=== PATIENT | female | born 1950 | race Caucasian/White ===

== ENCOUNTER → 2016-05-27 | Outpatient (CLI) | payer OTHER ==
--- NOTE | 2016-06-01 09:10 | MM ---
Reason for exam: screening (asymptomatic). Last mammogram was performed 1 year and 2 months ago. History: Patient is postmenopausal, history of other cancer, and had first child at age 37. Family history of breast cancer in 2 maternal aunts. Benign excisional biopsy of the left breast, 2012. Physical Findings: A clinical breast exam by your physician is recommended on an annual basis and results should be correlated with mammographic findings. MG 3D Screening Mammo W/Cad Bilateral CC and MLO view(s) were taken. Prior study comparison: April 08, 2015, mammogram, performed at [facility]. April 04, 2014, mammogram, performed at [facility]. The breast tissue is extremely dense which could obscure a lesion on mammography. Finding: There are indeterminate calcifications. Previous mammotome biopsy in the left breast. There is a chronic nodularity in the right breast. ASSESSMENT: Incomplete: need additional imaging evaluation, BI-RAD 0 RECOMMENDATION: Special view mammogram of the right breast. If lesion persists on supplemental views, image directed ultrasound is recommended. [facility] will attempt to contact patient to return for supplemental views and ultrasound if indicated.
== END | disposition home or self-care (01) ==
LOC: RADMAMWWP 10:55
PROVIDERS: ATTEND Family Medicine
DX: Z12.31 Encounter for screening mammogram for malignant neoplasm of breast (principal)
CPT/HCPCS: 77063; G0202

== ENCOUNTER → 2016-06-02 | Outpatient (CLI) | payer OTHER ==
[2016-06-02 09:13] LABS: Basophils % (A) 1 %; CH 31.7; CHCM 31.7; Eosinophils # (A) 0.2 k/uL (0-0.7); Eosinophils % (A) 3 %; HDW 1.94; HGB 13.5 gm/dL (11.4-16.0); Luc # (Auto) 0.17; Luc % (Auto) 4; Lymphocytes # (A) 1.8 k/uL (1.0-4.8); Lymphocytes % (A) 37 %; MCH 31.5 pg (25.0-35.0); MCHC 31.3 g/dL (31.0-37.0); MCV 100.6 fL (80.0-100.0); Mean Platelet Volume 6.9; Monocytes # (A) 0.4 k/uL (0-1.0); Monocytes % (A) 7 %; Neutrophils # (A) 2.3 k/uL (1.3-7.7); Neutrophils % (A) 48 %; RBC 4.27 m/uL (3.80-5.40); RDW 12.7 % (11.5-15.5); WBC 4.7 k/uL (3.8-10.6); WBC (Perox) 4.83
--- NOTE | 2016-06-02 09:15 | MM ---
Reason for exam: additional evaluation requested from abnormal screening. Last mammogram was performed less than 1 month ago. History: Patient is postmenopausal, history of other cancer, and had first child at age 37. Family history of breast cancer in 2 maternal aunts. Benign excisional biopsy of the left breast, 2012. Physical Findings: Nurse did not find any significant physical abnormalities on exam. MG Work Up Mamm w CAD RT ML view(s) were taken of the right breast. Prior study comparison: May 27, 2016, bilateral MG 3d screening mammo w/cad. April 08, 2015, mammogram, performed at [facility]. Finding: There are grouped and segmental calcifications in the lower inner quadrant of the right breast. New finding since May 27, 2016 and April 08, 2015. These results were verbally communicated with the patient and result sheet given to the patient on 06/02/16. ASSESSMENT: Suspicious, BI-RAD 4 RECOMMENDATION: Stereotactic core biopsy of the right breast. Called Dr. Solomon with mammographic findings and has scheduled an appointment for the patient for 06/08/16 at 3:[address] Simpson. PRELIMINARY REPORT CALLED AND FAXED TO DR. SIMPSON ON 06/02/16 AT 300/TP.
[2016-06-02 09:17] LABS: ALT 60 U/L (9-52); AST 45 U/L (14-36); Alkaline Phosphatase 94 U/L (38-126); Anion Gap 11 mmol/L; Blood Urea Nitrogen 15 mg/dL (7-17); Calcium 9.9 mg/dL (8.4-10.2); Carbon Dioxide 26 mmol/L (22-30); Chloride 105 mmol/L (98-107); Cholesterol 251 mg/dL (<200); Glucose 84 mg/dL (74-99); Non-African American GFR(MDRD) >60 (>60 ml/min/1.73 sqM); Potassium 4.2 mmol/L (3.5-5.1); Sodium 142 mmol/L (137-145); Total Bilirubin 1.1 mg/dL (0.2-1.3); Total Protein 7.8 g/dL (6.3-8.2); Triglycerides 81 mg/dL (<150)
[2016-06-02 09:31] LABS: HDL Cholesterol 137 mg/dL (40-60)
[2016-06-04 16:53] LABS: Hepatitis B Surface Ag Index 0.05
[2016-06-04 16:59] LABS: Hepatitis B Core IgM Index 0.03
[2016-06-04 17:10] LABS: Hepatitis C Virus IgG Index 0.01
[2016-06-04 17:13] LABS: Hepatitis C Virus IgG Ab Negative (Negative)
== END | disposition home or self-care (01) ==
LOC: RADMAMWWP 07:14
PROVIDERS: ATTEND Family Medicine
DX: R92.8 Other abnormal and inconclusive findings on diagnostic imaging of breast (principal); Z00.00 Encounter for general adult medical examination without abnormal findings
CPT/HCPCS: 80061; 80053; 84443; 85025; 36415; G0206; 80074

== ENCOUNTER → 2016-06-14 | Day surgery (SDC) | payer OTHER ==
[~2016-06-14] MED LIST: ALPRAZolam 0.25 MG TAB ONE; BACITRACIN OINT 1 EACH PACKET TOPICAL ONE; LIDOCAINE 1% INJ 10MG/ML (20 ML MDV) ONE; LIDOCAINE 1%-EPI 1:100,000 20 ML VIAL ONE; SODIUM BICARB 4% 5 ML VIAL (0.48 MEQ/ML) ONE
--- NOTE | 2016-06-14 16:01 | MM ---
EXAMINATION TYPE: MG stereo VAD BX RT DATE OF EXAM: 06/14/2016 3:47 PM COMPARISON: Previous study dated 06/02/2016 and 05/27/2016. CLINICAL HISTORY: Abnormal mammogram. TECHNIQUE: Stereotactic guided core biopsy of right breast. FINDINGS: The procedure of stereotactic guided core biopsy was explained to the patient. Benefits, alternatives, and risks were discussed. An informed consent was then obtained. The shortness pathway for biopsy was chosen. Shortness pathway was medial to lateral approach. I performed the localization, then surgeon, Dr. Bucio performed the remainder of the procedure. A vacuum assisted biopsy gun was used to obtain multiple core samples. The patient tolerated the procedure well without any immediate complication. The patient was kept in the radiology department for short stay after the procedure and then discharged home in stable condition. Targeted calcifications are identified in specimen mammogram. Post biopsy mammogram shows the clip to appear in satisfactory position relative to the targeted area of concern on the preprocedure images. IMPRESSION: SUCCESSFUL, UNCOMPLICATED STEREOTACTIC GUIDED CORE BIOPSY OF AREA OF CONCERN IN THE RIGHT BREAST, FULL PATHOLOGY RESULTS TO FOLLOW. 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 Recommendation Surgical consult of the right breast. GUANACO
== END ==
LOC: RADMAMWWP 13:11
PROVIDERS: ATTEND Surgery
DX: D05.11 Intraductal carcinoma in situ of right breast (principal); N64.89 Other specified disorders of breast; R92.8 Other abnormal and inconclusive findings on diagnostic imaging of breast; Z88.5 Allergy status to narcotic agent; Z88.2 Allergy status to sulfonamides
CPT/HCPCS: 88305; 19081; A4648; J2001

== ENCOUNTER → 2016-06-17 | Outpatient (CLI) | payer OTHER ==
--- NOTE | 2016-06-17 10:41 | US ---
EXAMINATION TYPE: US liver DATE OF EXAM: 06/17/2016 10:22 AM COMPARISON: NONE CLINICAL HISTORY: Elevated liver enzymes R74.8. EXAM MEASUREMENTS: Liver Length: 12.5 cm Gallbladder Wall: 0.2 cm CBD: 0.1 cm Right Kidney: 10.8 x 4.1 x 3.6 cm TECHNOLOGIST IMPRESSION: large body habitus, overlying bowel gas Pancreas: large body habitus, overlying bowel gas Liver: fatty liver. No discrete masses or cysts are evident. Gallbladder: small bright echo gb neck not gravity dependent, possible polyp, vs valves Evidence for sonographic Cummings's sign: no CBD: wnl Right Kidney: wnl IMPRESSION: 1. Limited visualization due to bowel gas. This is further limited by body habitus. 2. Mild fatty infiltration liver.. 3. Gallstones. Small polyps would be difficult to exclude.
== END | disposition home or self-care (01) ==
LOC: RADUSWWP 10:00
PROVIDERS: ATTEND Family Medicine
DX: K76.0 Fatty (change of) liver, not elsewhere classified (principal); K80.20 Calculus of gallbladder without cholecystitis without obstruction
CPT/HCPCS: 76705

== ENCOUNTER → 2017-01-25 | Outpatient (CLI) | payer OTHER ==
--- NOTE | 2017-01-25 13:55 | CT ---
EXAMINATION TYPE: CT iac wo con DATE OF EXAM: 01/25/2017 COMPARISON: NONE HISTORY: hearing loss/fullness both ears CT DLP: 150.0 mGycm. Automated Exposure Control for Dose Reduction was Utilized. TECHNIQUE: CT scan of internal auditory canal is performed without contrast, thin cut axial images ar e obtained, coronal reformatted images are also reviewed. FINDINGS: The external auditory canals are patent bilaterally. Mastoid air cells show no evidence of abnormal opacification bilaterally. The middle ear ossicles are symmetric and unremarkable. There is no evidence of suspicious surrounding soft tissue density to suggest cholesteatoma. The scutum is preserved bilaterally. The cochlea and the semicircular canals are symmetric and unremarkable. Ves tibular aqueduct and internal carotid canal appear unremarkable. There is asymmetric narrowing right temporomandibular joint with flattening of condylar head. Visual ized paranasal sinuses are grossly clear. There is elongation of both globes present. Visualized port ion brain parenchyma is felt within normal limits. IMPRESSION: No significant abnormality seen to account for patient's symptoms. Asymmetric right-sided temporomandibular joint degenerative change noted. Correlate clinically.
== END | disposition home or self-care (01) ==
LOC: RADCTMAIN 13:05
PROVIDERS: ATTEND Otolaryngology
DX: M26.69 Other specified disorders of temporomandibular joint (principal); H90.12 Conductive hearing loss, unilateral, left ear, with unrestricted hearing on the contralateral side
CPT/HCPCS: 70480

== ENCOUNTER → 2017-10-28 | Outpatient (CLI) | payer MEDICARE, OTHER ==
--- NOTE | 2017-10-28 15:37 | US ---
EXAMINATION TYPE: US carotid duplex BILAT DATE OF EXAM: 10/28/2017 COMPARISON: NONE CLINICAL HISTORY: R55 Syncope and collapse. EXAM MEASUREMENTS: RIGHT: Peak Systolic Velocity (PSV) cm/sec ----- Right CCA: 75.6 ----- Right ICA: 68.9 ----- Right ECA: 49.6 ICA/CCA ratio: 0.9 RIGHT: End Diastole cm/sec ----- Right CCA: 26.7 ----- Right ICA: 31.1 ----- Right ECA: 9.7 LEFT: Peak Systolic Velocity (PSV) cm/sec ----- Left CCA: 66.0 ----- Left ICA: 67.7 ----- Left ECA: 82.2 ICA/CCA ratio: 1.0 LEFT: End Diastole cm/sec ----- Left CCA: 23.2 ----- Left ICA: 23.2 ----- Left ECA: 19.4 VERTEBRALS (direction of flow): Right Vertebral: Antegrade Left Vertebral: Antegrade Rhythm: Normal Grayscale images show minimal eccentric hyperechoic plaque at left carotid bulb. There is no signific ant plaque at right carotid bulb. IMPRESSION: No hemodynamically significant stenosis seen in either internal carotid artery.
== END | disposition home or self-care (01) ==
LOC: RADUSWWP 14:59
PROVIDERS: ATTEND Family Medicine
DX: R55 Syncope and collapse (principal)
CPT/HCPCS: 93880

== ENCOUNTER → 2017-11-17 | Outpatient (CLI) | payer MEDICARE, OTHER ==
--- NOTE | 2017-11-17 08:16 | US ---
EXAMINATION TYPE: US liver DATE OF EXAM: 11/17/2017 COMPARISON: US CLINICAL HISTORY: R74.8 Abnormal Levels other serum enzymes; medication for HTN EXAM MEASUREMENTS: Liver Length: 14.1 cm Gallbladder Wall: 0.2 cm CBD: 0.4 cm Right Kidney: 10.6 x 5.1 x 5.0 cm Pancreas: hyperechoic Liver: There is increased echogenicity of the hepatic parenchyma with diminished visualization of th e portal triads most commonly relating to hepatic steatosis and limiting evaluation for underlying he patic masses. Gallbladder: mobile hyperechoic and shadowing focus, gallstone(s) noted mid then fundal area Evidence for sonographic Cummings's sign: no CBD: wnl Right Kidney: No hydronephrosis or masses seen. There is mild cortical renal thinning suggesting und erlying medical renal disease. IMPRESSION: 1. Findings most commonly related to hepatic steatosis, overall appearing mild in degree. 2. Cholelithiasis without sonographic evidence of acute cholecystitis. 3. Mild right cortical renal thinning suggesting underlying medical renal disease.
== END ==
LOC: RADUSWWP 07:10
PROVIDERS: ATTEND Family Medicine
DX: K76.0 Fatty (change of) liver, not elsewhere classified (principal); K80.20 Calculus of gallbladder without cholecystitis without obstruction
CPT/HCPCS: 76705

== ENCOUNTER → 2018-01-10 | Outpatient (CLI) | payer MEDICARE, OTHER | END | disposition home or self-care (01) | LOC: LABWHC1 10:21 | PROVIDERS: ATTEND Surgery Plastic and Reconstructive Surgery | DX: Z01.818 Encounter for other preprocedural examination (principal) | CPT/HCPCS: 36415; 93005 ==

== ENCOUNTER → 2018-03-10 | Outpatient (CLI) | payer MEDICARE, OTHER ==
--- NOTE | 2018-03-10 11:34 | MM ---
Reason for exam: additional evaluation requested from prior study. Last mammogram was performed 1 year ago. History: Patient is postmenopausal, has history of breast cancer at age 65, history of other cancer, and had first child at age 37. Family history of breast cancer in 2 maternal aunts. Malignant MG stereo VAD BX RT of the right breast, June 14, 2016. Benign excisional biopsy of the left breast, 2012. Took estrogen beginning at age 41. Took progesterone beginning at age 41. Physical Findings: Nurse did not find any significant physical abnormalities on exam. MG 3D Diag Mammo W/Cad LEISA Bilateral CC and MLO view(s) were taken. Prior study comparison: March 02, 2017, bilateral MG 3d diag mammo w/cad LEISA. June 02, 2016, right breast MG work up mamm w CAD RT. The breast tissue is heterogeneously dense. This may lower the sensitivity of mammography. Finding: There is an intermediate concern, suspicious equal density (isodense), lobulated mass located 5 cm from the nipple in the lower quadrant, middle position of the left breast, persistent on compression. New finding since March 02, 2017 and June 02, 2016. These results were verbally communicated with the patient and result sheet given to the patient on 03/10/18. ASSESSMENT: Incomplete: need additional imaging evaluation, BI-RAD 0 RECOMMENDATION: Ultrasound of the left breast.
--- NOTE | 2018-03-10 11:36 | USB ---
Reason for exam: additional evaluation requested from abnormal screening. History: Patient is postmenopausal, has history of breast cancer at age 65, history of other cancer, and had first child at age 37. Family history of breast cancer in 2 maternal aunts. Malignant MG stereo VAD BX RT of the right breast, June 14, 2016. Benign excisional biopsy of the left breast, 2012. Took estrogen beginning at age 41. Took progesterone beginning at age 41. US Breast Limited LT Left limited breast ultrasound including focal area of concern, retroareolar and axilla demonstrates no cystic or solid lesion seen. Very dense, no definite lesion. These results were verbally communicated with the patient and result sheet given to the patient on 03/10/18. ASSESSMENT: Benign, BI-RAD 2 RECOMMENDATION: Follow-up diagnostic mammogram of the left breast in 6 months.
== END | disposition home or self-care (01) ==
LOC: RADMAMWWP 08:41
PROVIDERS: ATTEND Radiology Radiation Oncology
DX: R92.8 Other abnormal and inconclusive findings on diagnostic imaging of breast (principal); Z85.3 Personal history of malignant neoplasm of breast
CPT/HCPCS: 77066; 76642; G0279; 77062

== ENCOUNTER → 2018-03-30 | Outpatient (CLI) | payer MEDICARE, OTHER ==
--- NOTE | 2018-04-06 09:46 | BMR ---
EXAMINATION TYPE: MR breast BILAT wo/w con DATE OF EXAM: 03/30/2018 COMPARISON: MRI Breast of 07/09/2016 from [facility] HISTORY: Intraductal carcinoma in situ, right breast. Stereotactic guided biopsy of 06/14/2016 demonst rated ductal carcinoma in situ. Breast cancer was treated with lumpectomy in 2017. TECHNIQUE: A series of fat and water weighted images in the long and short axis views of both breasts are obtained in conjunction with dynamic contrast MRI with subtraction technique. The patient was i njected with 7.5 mL intravenous Gadavist gadolinium contrast. Three-dimensional and additional post processing imaging is created on independent workstation and reviewed during official interpretation of this study. FINDINGS: The breasts are composed of heterogenous fibroglandular tissue. There is moderate symmetric backgroun d parenchymal enhancement. Susceptibility from a biopsy marker is seen of the central left breast anterior depth. Ductal ectasia is noted on the left. Post therapy changes are seen from prior lumpectomy within the right breast medially at posterior dep th with medial deviation of the nipple. There is a thin rim of enhancement surrounding the postlumpec candy site which demonstrates T2 hyperintensity and T1 hypointensity representing a seroma. At middle depth in the upper inner quadrant on the left there is a 5 mm nonenhancing circumscribed ro unded mass with T1 hyperintensity suggestive of a cyst with proteinaceous and/or hemorrhagic debris. No suspicious mass or nonmass enhancement is seen within either breast. No suspicious axillary, inter nal mammary, or intramammary adenopathy is identified in either breast. Right middle lobe opacity is seen on postcontrast T1 fat sat series 701 image 355 for which further e valuation with CT thorax is recommended. The heart appears mildly enlarged. IMPRESSION: 1. BI-RADS 2-Benign findings. Annual screening mammography may be supplemented with annual MRI in thi s patient with a personal history of breast cancer. 2. Incidentally noted right middle lobe opacity that could represent atelectasis, pneumonia, or pulmo nary nodule. CT thorax is recommended for further evaluation.
== END | disposition home or self-care (01) ==
LOC: RADMRIMAIN 08:44
PROVIDERS: ATTEND Radiology Radiation Oncology
DX: D05.11 Intraductal carcinoma in situ of right breast (principal); Z92.3 Personal history of irradiation
CPT/HCPCS: 82565; 84520; 0159T; C8908; A9585; 77059

== ENCOUNTER → 2018-04-28 | Outpatient (CLI) | payer MEDICARE, OTHER ==
--- NOTE | 2018-04-28 10:35 | CT ---
EXAMINATION TYPE: CT chest wo/w con DATE OF EXAM: 04/28/2018 COMPARISON: Oncology CT chest September 03, 2016, bilateral breast MRI March 30, 2018 HISTORY: Right breast cancer CT DLP: 1172 mGycm. Automated Exposure Control for Dose Reduction was Utilized. TECHNIQUE: CT scan of the thorax is performed following without and with IV Contrast, patient inject ed with 100 ml mL of Isovue 300. FINDINGS: LUNGS: Some new linear scarring or atelectasis anterior right midlung axial image 29 is noted. There is some additional peripheral linear scarring or atelectasis inferior anterior to this noted. There i s minimal linear scarring or atelectasis centrally left lung base just above diaphragm. No suspicious parenchymal nodules or masses are identified. No pleural effusion or pneumothorax is present bilater ally. MEDIASTINUM: There are no greater than 1 cm hilar or mediastinal lymph nodes. No pericardial effusi on is seen. Mild cardiomegaly is present. OTHER: There is marked improvement in medial right breast area now measuring 1.6 x 1.0 cm axial image 27 favoring postsurgical seroma. Biopsy clip or calcification centrally left breast axial image 32 i s redemonstrated. Visualized liver is markedly hypodense consistent with fatty infiltration. There is mild generalized fat replaced atrophy of the visualized pancreas. There are diverticula in visualize d portion of colon at level of splenic flexure. IMPRESSION: 1. No suspicious lung nodules or masses. Some new linear scarring and/or less likely atelectasis righ t lung favors posttreatment change.
== END | disposition home or self-care (01) ==
LOC: RADCTMAIN 07:48
PROVIDERS: ATTEND Radiology Radiation Oncology
DX: J98.4 Other disorders of lung (principal); D05.11 Intraductal carcinoma in situ of right breast; Z92.3 Personal history of irradiation
CPT/HCPCS: 82565; 84520; 71270; 36415; Q9967

== ENCOUNTER 2018-06-17 07:47 | Inpatient (IN) | payer MEDICARE, OTHER ==
--- NOTE | 2018-06-17 08:00 | ED ---
Fall HPI - General Chief Complaint: Fall Stated Complaint: knee injury Time Seen by Provider: 06/17/18 07:50 Source: patient Mode of arrival: EMS - History of Present Illness Initial Comments: This is a 67-year-old female who states she slipped on the ice and fell last night doing the splits she is had right knee pain since that time she's been icing it all night but states she has persistent pain especially she tries weight-bear. She denies any head neck or back pain. He denies any other injuries. She states her restless there is minimal pain is unable to quantify the pain at this time. MD Complaint: fall - Related Data Home Medications Medication Instructions Recorded Confirmed Losartan [Cozaar] 50 mg PO DAILY 01/23/18 06/17/18 Multivit-Min/FA/Lycopen/Lutein 1 tab PO DAILY 06/17/18 06/17/18 [Centrum Silver Tablet] Allergies Allergy/AdvReac Type Severity Reaction Status Date / Time Sulfa (Sulfonamide Allergy Rash/Hives Verified 06/17/18 08:30 Antibiotics) Review of Systems ROS Statement: Those systems with pertinent positive or pertinent negative responses have been documented in the HPI. ROS Other: All systems not noted in ROS Statement are negative. Past Medical History Past Medical History: Cancer, Hypertension Additional Past Medical History / Comment(s): breast cancer with radiation History of Any Multi-Drug Resistant Organisms: None Reported Past Surgical History: Breast Surgery, Hysterectomy Additional Past Surgical History / Comment(s): right sided lumpectomy in June 2016 Past Psychological History: No Psychological Hx Reported Smoking Status: Never smoker Past Alcohol Use History: None Reported Past Drug Use History: None Reported General Exam - General Exam Comments Initial Comments: This is a well-developed well-nourished awake alert oriented 3 female with a Thanh Coma Scale of 15 Limitations: no limitations General appearance: alert, in no apparent distress Head exam: Present: atraumatic, normocephalic, normal inspection Eye exam: Present: normal appearance, PERRL, EOMI. Absent: scleral icterus, conjunctival injection, periorbital swelling ENT exam: Present: normal exam, mucous membranes moist Neck exam: Present: full ROM Respiratory exam: Absent: chest wall tenderness Cardiovascular Exam: Present: regular rate, normal rhythm, normal heart sounds. Absent: systolic murmur, diastolic murmur, rubs, gallop, clicks Rectal exam: Present: deferred Extremities exam: Present: tenderness, normal capillary refill, other. Absent: full ROM (Tenderness to palpation over the left hip no step-off or crepitation no shortening or rotation. No tenderness of the pelvis to pelvic rock. Right knee demonstrates edema with tenderness palpation no definite deformity however. No tenderness above or below this area no sensorimotor or vascular deficits limited range of motion however secondary to pain) Back exam: Present: normal inspection Neurological exam: Present: alert, oriented X3, CN II-XII intact Psychiatric exam: Present: normal affect, normal mood Skin exam: Present: warm, dry, intact, normal color. Absent: rash Course Vital Signs 06/17/18 07:48 Temperature 97.8 F Pulse Rate 93 Respiratory 16 Rate Blood Pressure 151/93 O2 Sat by Pulse 96 Oximetry Medical Decision Making - Medical Decision Making I did discuss the case in the branch who is covering for Dr. Otero. Patient will be admitted surgery is planned for tomorrow. I did discuss the findings with the patient and her . The patient initially did not request or want any pain medication she now is willing to except some. - Radiology Data Radiology results: report reviewed (I did review the imaging and report as well as a CT. There is a tibial plateau fracture extending into the proximal tibia. Please see complete report for details), image reviewed Disposition Clinical Impression: Fall, Right medial tibial plateau fracture Disposition: ADMITTED IP TO THIS [facility] Condition: Stable Referrals: Suleiman Solomon MD [Primary Care Provider] - 1-2 days
--- NOTE | 2018-06-17 08:47 | XR ---
EXAMINATION TYPE: XR pelvis AP view, XR knee 4V RT XR tibia fibula 2 views RT, DATE OF EXAM: 06/17/2018 COMPARISON: NONE HISTORY: 67-year-old female fall, left-sided pelvic pain, right knee pain and swelling. FINDINGS: Pelvis: SI joints appear symmetric and intact as does the pubic symphysis. There is osteopenia. Overall hip j oint spaces are relatively maintained, possibly with minimal superolateral joint space narrowing on t he left. No displaced fracture seen. Right knee and tibia/fibula: There is a vertical fracture of the proximal tibial epiphysis, metaphysis, and extending into the pro ximal most shaft. The fracture involves the medial tibial plateau extending into the central articula r surface of the medial compartment with an additional fracture extending into the intercondylar yulia ence. Underlying hemarthrosis. Extensor mechanism intact. IMPRESSION: 1. Pelvis: Osteopenia without displaced fracture seen at the hips. 2. Right knee and tibia/fibula: Nondisplaced vertical tibial plateau fracture involving the articular surface of the medial tibial plateau and intercondylar eminence. The fracture line extends down into the proximal most shaft.
--- NOTE | 2018-06-17 09:53 | CT ---
EXAMINATION TYPE: CT knee RT wo con DATE OF EXAM: 06/17/2018 COMPARISON: HISTORY: Fall CT DLP: 145.9 mGycm Automated exposure control for dose reduction was used. There is unenhanced CT of the right knee. Bon e and soft tissue window settings submitted. FINDINGS: Improving but persistent perihilar infiltrates. Follow-up until resolution advised.No fracture depres basil appreciated. No additional fracture seen. Mild surrounding soft tissue edema. No joint effusion. IMPRESSION: Improving but persistent perihilar infiltrates. Follow-up until resolution advised.
[2018-06-17] MEDS ORDERED: HYDROcodone/APAP 5-325MG 1 EACH TAB PO STA (10:04)
[2018-06-17] MEDS ORDERED: NALOXONE 0.4 MG/ML 1 ML VIAL IV PRN (10:20)
[2018-06-17] MEDS ORDERED: HYDROmorphone 0.5 MG/0.5 ML SYRINGE IVP PRN (10:27)
[2018-06-17] MEDS ORDERED: ONDANSETRON 4 MG/2 ML VIAL IVP PRN (10:27)
--- NOTE | 2018-06-17 10:37 | XR ---
EXAMINATION TYPE: XR chest 2V DATE OF EXAM: 06/17/2018 COMPARISON: 03/06/17 HISTORY: Shortness of breath TECHNIQUE: Frontal and lateral views of the chest are obtained. FINDINGS: Scattered senescent parenchymal changes noted. Hyperinflation compatible with COPD. No evidence for infiltrate. No evidence for atelectasis. Heart size is stable. Mediastinal structures are stable and grossly unremarkable. No evidence for hilar prominence. Degenerative changes dorsal spine. IMPRESSION: 1. No evidence for acute pulmonary disease.
[2018-06-17 10:40] LABS: Basophils % (A) 1 %; Eosinophils # (A) 0.1 k/uL (0-0.7); Eosinophils % (A) 1 %; HCT 38.4 % (34.0-46.0); HGB 12.7 gm/dL (11.4-16.0); Lymphocytes # (A) 1.1 k/uL (1.0-4.8); Lymphocytes % (A) 15 %; MCH 32.9 pg (25.0-35.0); MCHC 33.1 g/dL (31.0-37.0); MCV 99.4 fL (80.0-100.0); Mean Platelet Volume 6.9; Monocytes # (A) 0.4 k/uL (0-1.0); Monocytes % (A) 5 %; Neutrophils # (A) 5.5 k/uL (1.3-7.7); Neutrophils % (A) 77 %; Platelet Count 205 k/uL (150-450); RBC 3.86 m/uL (3.80-5.40); RDW 13.2 % (11.5-15.5); WBC 7.2 k/uL (3.8-10.6)
[2018-06-17 10:51] LABS: Albumin 4.3 g/dL (3.5-5.0); Magnesium 1.5 mg/dL (1.6-2.3); Potassium 4.6 mmol/L (3.5-5.1); Total Bilirubin 1.3 mg/dL (0.2-1.3); Total Protein 7.3 g/dL (6.3-8.2)
[2018-06-17 11:20] LABS: Creatine Kinase MB 0.4 ng/mL (0.0-2.4)
[2018-06-17] MEDS: SODIUM CHLORIDE 0.9% 1,000 ML IV SCH (13:39)
[2018-06-17] MEDS ORDERED: HYDROcodone/APAP 7.5-325MG 1 EACH TAB PO PRN (13:49)
[2018-06-17] MEDS ORDERED: HYDROmorphone 1 MG/ML 1 ML SYRINGE IM PRN (13:49)
--- NOTE | 2018-06-17 13:49 | P.HPOR ---
History of Present Illness H&P Date: 06/17/18 Chief Complaint: Right knee medial tibial plateau fracture Patient is a 67-year-old female who presented to [facility] early this morning with regards to her right knee injury. Patient states last night she slipped and fell on the ice when she injured her right knee. Patient initially went home, she needed assistance getting in her home. She woke up this morning and had increasing pain and reported to the hospital. Prior to the hospital, imaging test were done. Images demonstrated a right knee medial tibial plateau fracture. I was contacted by the emergency room physician, the case was discussed. I was able to discuss the case to my attending Dr. Otero, including imaging studies. Patient was admitted under orthopedic care. Consults were placed for internal medicine for medical management. Patient evaluated today at bedside, her is present. She is resting comfortably, there is a pillow under the knee at this time. The knee immobilizer prescription has been placed. She's remain nonweightbearing at this time. She notes no significant pain in the right knee, increasing pain slightly when movement. She denies any previous orthopedic surgeries involving the right knee, right hip, right foot or ankle. She has no other orthopedic complaints at this time. Review of Systems Constitutional: Reports as per HPI Past Medical History Past Medical History: Cancer, Hypertension Additional Past Medical History / Comment(s): breast cancer with radiation History of Any Multi-Drug Resistant Organisms: None Reported Past Surgical History: Breast Surgery, Hysterectomy Additional Past Surgical History / Comment(s): right sided lumpectomy in June 2016, partial right mastectomyh Past Anesthesia/Blood Transfusion Reactions: No Reported Reaction Past Psychological History: No Psychological Hx Reported Smoking Status: Never smoker Past Alcohol Use History: Daily Additional Past Alcohol Use History / Comment(s): 2 glasses of wine with dinner/ daily Past Drug Use History: None Reported - Past Family History Father Family Medical History: Coronary Artery Disease (CAD) Mother Family Medical History: Cancer Medications and Allergies Home Medications Medication Instructions Recorded Confirmed Type Losartan [Cozaar] 50 mg PO DAILY 01/23/18 06/17/18 History Multivit-Min/FA/Lycopen/Lutein 1 tab PO DAILY 06/17/18 06/17/18 History [Centrum Silver Tablet] Allergies Allergy/AdvReac Type Severity Reaction Status Date / Time Sulfa (Sulfonamide Allergy Rash/Hives Verified 06/17/18 08:30 Antibiotics) Physical Examination Right lower extremity: No obvious open lesions or sores, no areas of erythema. There is obvious effusion present around the right knee Range of motion and strength testing was not assessed Tenderness with palpation over the medial tibia and anterior tibia Logroll maneuver the hip reproduces no pain Postoperative in tenderness with palpation around the foot or ankle, range of motion is intact in the foot and ankle Calf is soft, no tenderness with palpation Neurovascular exam of the right lower extremity intact Results - Labs Labs: Abnormal Lab Results - Last 24 Hours (Table) 06/17/18 Range/Units 10:10 Glucose 109 H (74-99) mg/dL Magnesium 1.5 L (1.6-2.3) mg/dL AST 73 H (14-36) U/L ALT 95 H (9-52) U/L H & H 06/17/18 Range/Units 10:10 Hgb 12.7 (11.4-16.0) gm/dL Hct 38.4 (34.0-46.0) % Result Diagrams: 06/17/18 10:10 06/17/18 10:10 - Diagnostic results Knee x-ray: report reviewed, image reviewed Knee CT: report reviewed, image reviewed Assessment and Plan Plan: Imaging: Multiple imaging studies of the right lower extremity were obtained, including x -rays and computed tomography scan. Images demonstrate a slightly displaced medial tibial plateau fracture Assessment: 1. Right knee medial tibial plateau fracture 2. Status post fall from standing Plan: After discussion of the case in my attending physician Dr. Otero, we would like to proceed with surgery on 06/18/2018. We like to proceed with an open reduction internal fixation procedure of the right medial tibial plateau fracture Risk and benefits of the procedure were discussed with the patient and her at bedside today, this including but not excluding infection, blood loss , lamina blood clots, neurovascular injury, pain and stiffness, need for subsequent surgery. Patient is a good understanding and would like to proceed Obtain consent Nonweightbearing right lower extremity Nothing by mouth after midnight Knee immobilizer Insertion of urinary catheter Pain control Medical recommendations Further recommendations to follow after surgery Time with Patient: Less than 30
[2018-06-17] MEDS: HEPARIN SODIUM,PORCINE 5,000 UNIT/ML 1 ML VIAL SQ SCH ×2 (13:51→19:18)
[2018-06-17] MEDS ORDERED: Magnesium Replacement Protocol 1 EACH MISC MISCELLANE PRN (14:06)
[2018-06-17] MEDS ORDERED: TEMAZEPAM 15 MG CAP PO PRN (15:49)
[2018-06-17] MEDS ORDERED: ALPRAZolam 0.25 MG TAB PO PRN (15:49)
[2018-06-17] MEDS ORDERED: LORazepam 1 MG TAB PO PRN (15:49)
[2018-06-17] MEDS: MAGNESIUM SULFATE-D5W PMX 1 GM in DEXTROSE/WATER 1 100ML.BAG IVPB SCH ×2 (15:54→17:34)
[2018-06-17 16:02] LABS: Appearance,Urine Clear (Clear); Bacteria,Urine Many /hpf; Bilirubin,Urine Negative (Negative); Blood,Urine Trace (Negative); Color,Urine Light Yellow; Glucose,Urine (UA) Negative (Negative); Ketones,Urine Negative (Negative); Leukocyte Esterase,Urine Small (Negative); Mucus,Urine Rare /hpf; Nitrite,Urine Positive (Negative); PH, Urine 5.5 (5.0-8.0); Protein,Urine Negative (Negative); RBC,Urine 1 /hpf (0-5); Squamous Epithelial Cell,Urine <1 /hpf (0-4); Urobilinogen,Urine <2.0 mg/dL (<2.0); WBC,Urine 7 /hpf (0-5)
--- NOTE | 2018-06-17 17:40 | CONS ---
CONSULTATION DATE OF SERVICE: 06/17/2018 REASON FOR CONSULTATION: Advice regarding hypertension and multiple other medical issues requested by Orthopedic surgery. HISTORY: This 67-year-old woman with a past medical history of hypertension, history of breast cancer, radiation, hysterectomy, apparently had a fall and subsequently had a tibial plateau fracture. The patient admitted to Dr. Otero and the patient is slated for surgery at this time. There is no history of any fever, rigors or chills. No history of headache, loss of consciousness, seizures at this time. The patient apparently had a detailed workup recently. The patient had a right knee and as well as right medial tibial plateau fracture. There is no history of fever, rigors or chills. No history of headache, loss of consciousness, seizures. PAST MEDICAL HISTORY: History of hypertension, history of breast cancer, radiation, history of hysterectomy. MEDICATIONS: Prior to admission include home medications: 1. Multivitamins one p.o. daily. 2. Cozaar 50 mg daily. ALLERGIES: SULFA. FAMILY HISTORY: History of coronary artery disease in the family. SOCIAL HISTORY: history of occasional alcohol. No history of smoking. REVIEW OF SYSTEMS: ENT: No diminished vision. No diminished hearing. CARDIOVASCULAR: No angina or palpitations. RESPIRATORY: No cough. GI no nausea or vomiting. no dysuria. NERVOUS SYSTEM: No numbness or weakness. ALLERGY/IMMUNOLOGY: No asthma or hayfever. MUSCULOSKELETAL: As mentioned earlier. HEMATOLOGY/ONCOLOGY: No history of anemia. ENDOCRINE: No history of diabetes or hypothyroidism. CONSTITUTIONAL: As mentioned earlier. Dermatology: Negative. Rheumatology: Negative. Psychiatry: As mentioned earlier. PHYSICAL EXAMINATION: GENERAL: The patient is alert and oriented times three. VITAL SIGNS: Pulse 91, blood pressure 150/90, respirations 16, temperature 97.9, pulse ox 100 percent on room air. HEENT: Conjunctivae normal. NECK: No jugular venous distention. CARDIOVASCULAR: S1, S2 muffled. RESPIRATORY: Breath sounds diminished in the bases. No rhonchi. No crackles. ABDOMEN: Soft, nontender. No mass palpable. LEGS: Status post left knee fracture. NERVOUS SYSTEM: No focal deficits. LABS: WBC 7.1, hemoglobin 12.7, magnesium 1.5, AST is 73, and ALT is 95. ASSESSMENT: 1. Status post right knee medial tibial plateau fracture status post fall. 2. Hypertension. 3. Hypomagnesemia. 4. Increased AST ALT. 5. History of breast cancer with radiation. 6. History of hysterectomy. 7. FULL CODE. RECOMMENDATIONS AND DISCUSSION: In this 67-year-old woman who presented with multiple complex medical issues, at this time I recommend to continue current management. Symptomatic treatment. I recommend repeat labs. Magnesium supplementation. Otherwise, I would also recommend DVT prophylaxis and resume the home medications. We will follow the patient closely with you. The patient is cleared for surgery. Recommend repeat labs. See orders for details. Thank you for letting us participate in the care of this patient. MMODL / IJN: [id number] /
[2018-06-18] MEDS: HEPARIN SODIUM,PORCINE 5,000 UNIT/ML 1 ML VIAL SQ SCH ×3 (06:57→23:36)
[2018-06-18] MEDS: PANTOPRAZOLE 40 MG TABLET PO SCH (07:07)
[2018-06-18 08:00] LABS: Basophils % (A) 1 %; Eosinophils # (A) 0.1 k/uL (0-0.7); Eosinophils % (A) 2 %; HCT 33.8 % (34.0-46.0); Lymphocytes # (A) 1.1 k/uL (1.0-4.8); Lymphocytes % (A) 21 %; MCH 32.9 pg (25.0-35.0); MCHC 32.5 g/dL (31.0-37.0); MCV 101.3 fL (80.0-100.0); Macrocytosis Slight; Mean Platelet Volume 7.2; Monocytes # (A) 0.3 k/uL (0-1.0); Monocytes % (A) 6 %; Neutrophils # (A) 3.6 k/uL (1.3-7.7); Neutrophils % (A) 69 %; Platelet Count 162 k/uL (150-450); RBC 3.34 m/uL (3.80-5.40); RDW 12.9 % (11.5-15.5); WBC 5.2 k/uL (3.8-10.6)
[2018-06-18] MEDS ORDERED: SUCCINYLCHOLINE CHLORIDE 100 MG/5 ML SYR IV ONE (08:00)
[2018-06-18] MEDS ORDERED: GLYCOPYRROLATE 0.2 MG/ML 2 ML VIAL ONE (08:00)
[2018-06-18] MEDS ORDERED: ROCURONIUM BROMIDE 10 MG/ML 10 ML VIAL IV ONE (08:00)
[2018-06-18] MEDS ORDERED: NEOSTIGMINE 1 MG/ML 10 ML VIAL ONE (08:00)
[2018-06-18] MEDS ORDERED: MIDAZOLAM 2 MG/2 ML VIAL ONE (08:00)
[2018-06-18] MEDS ORDERED: DEXAMETHASONE SOD PHOS (MDV) 100 MG/10 ML VIAL ONE (08:00)
[2018-06-18] MEDS ORDERED: LIDOCAINE 1% INJ 10MG/ML (20 ML MDV) ONE (08:00)
[2018-06-18] MEDS ORDERED: ONDANSETRON 4 MG/2 ML VIAL ONE (08:00)
[2018-06-18] MEDS ORDERED: PROPOFOL 10 MG/ML 20 ML VIAL IV ONE (08:00)
[2018-06-18] MEDS ORDERED: fentaNYL (PF) 50 MCG/ML 2 ML AMP ONE (08:00)
[2018-06-18] MEDS: LOSARTAN 50 MG TAB PO SCH (08:07)
[2018-06-18 08:18] LABS: Albumin 3.5 g/dL (3.5-5.0); Calcium 9.2 mg/dL (8.4-10.2); Magnesium 1.8 mg/dL (1.6-2.3); Potassium 4.2 mmol/L (3.5-5.1); Total Bilirubin 1.5 mg/dL (0.2-1.3); Total Protein 6.2 g/dL (6.3-8.2)
[2018-06-18] MEDS ORDERED: MIDAZOLAM 2 MG/2 ML VIAL IVP ONE ×2 (09:22)
[2018-06-18] MEDS ORDERED: fentaNYL (PF) 50 MCG/ML 2 ML AMP IVP ONE (09:30)
[2018-06-18] MEDS ORDERED: SODIUM CHLORIDE 0.9% 1,000 ML IV ONE (10:10)
[2018-06-18] MEDS ORDERED: IV FLUID CONTINUATION 1,000 ML IV ONE (10:10)
[2018-06-18] MEDS ORDERED: SODIUM CHLORIDE 0.9% 50 ML with ceFAZolin 2,000 MG IV ONE ×2 (10:25)
[2018-06-18] MEDS ORDERED: LACTATED RINGERS 1,000 ML IV ONE (10:39)
[2018-06-18] MEDS ORDERED: ceFAZolin 1,000 MG in SODIUM CHLORIDE 0.9% 1,000 ML IRRIGATION ONE (10:39)
[2018-06-18] MEDS ORDERED: HYDROcodone/APAP 7.5-325MG 1 EACH TAB PO PRN (11:03)
--- NOTE | 2018-06-18 11:03 | P.OP ---
Date of Procedure: 06/18/18 Preoperative Diagnosis: Right knee tibial plateau fracture Postoperative Diagnosis: Right knee medial and lateral tibial plateau fractures Procedure(s) Performed: Open reduction and internal fixation right knee medial and lateral tibial plateau fractures Implants: 2Synthes 6.5 cannulated screws Anesthesia: GETA, regional (Adductor canal block) Surgeon: Mikey Otero Animal Bounty Hunter #1: Cesar Hodge Estimated Blood Loss (ml): 2 Pathology: none sent Condition: stable Disposition: PACU Indications for Procedure: 67-year-old patient seen with right knee tibial plateau fracture. I recommended open reduction and internal fixation. I discussed procedure, risks , complications and recovery. Patient was agreeable. Consent was obtained. Operative Findings: see description of procedure Description of Procedure: The patient was taken to the operative suite after having an adductor canal block performed by the department of anesthesia. The patient received preoperative IV antibiotics. The patient underwent a general anesthetic by the department of anesthesia. A well-padded tourniquet was placed proximal right thigh. The right lower extremity was then prepped and draped in the normal sterile orthopedic fashion. The extremity was elevated and tourniquet insufflated to 350. The C-arm was brought to the operative field. The fracture was reduced with a large reduction clamp. I made an incision along the medial aspect of the medial tibial plateau. A guidewire was introduced in sense through the proximal tibia just beneath the plateau in line with the joint line. A second incision was made posteriorly another guidewire was introduced parallel to that. The fracture looked reasonably aligned at this point. I depth gauged both wires and introduced 1-75 mm 6.5 cannulated screw posteriorly with a washer and then 1-70 mm 6.5 cannulated screw with a washer anteriorly. Both had good bite and purchase. The fracture appeared adequately aligned. Guidewires removed. The construct was now removed and reviewed under AP and lateral intraoperative imaging. There was good positioning of the fracture and internal fixation. Spot films obtained document that. Both incisions were repaired utilizing skin nickolas. We applied sterile dressings followed by loose web roll and Jovon bandage. Tourniquet was released noting immediate capillary refill distally. A knee immobilizer was placed into the right lower extremity. The patient was now awakened, transferred to a bed and taken recovery stable condition. Dinh BRAVO assisted the procedure.
--- NOTE | 2018-06-18 11:27 | FL ---
EXAMINATION TYPE: FL guidance operating room, XR knee limited RT DATE OF EXAM: 06/18/2018 COMPARISON: NONE HISTORY: 67-year-old female tibial plateau fracture fixation FINDINGS: Images during 2 cortical screw fixation from the medial side of the tibial plateau. FLUOROSCOPY Fluoroscopy time of 13 seconds was used during tibial plateau fracture fixation. 2 image/s document/ s the procedure. IMPRESSION: Intraoperative fluoroscopy as above.
[2018-06-18] MEDS: SODIUM CHLORIDE 0.9% 1,000 ML IV SCH (12:30)
[2018-06-18] MEDS: MULTIVITAMINS, THERA 1 EACH TAB PO SCH (15:30)
--- NOTE | 2018-06-18 16:38 | PN ---
PROGRESS NOTE DATE OF SERVICE: 06/18/2018. HISTORY: This 67-year-old woman who was admitted after right tibial plateau fracture is improving significantly. No chest pain. No palpitations. No fever. EXAM: Alert and oriented. Pulse 63, blood pressure 140/48, respiration 12, temperature 98.7, pulse ox 98% on room air. HEENT: Conjunctivae normal. NECK: No JVD. CARDIOVASCULAR: S1 and S2 muffled. LUNGS: Breath sounds diminished at the bases. Few scattered rhonchi. ABDOMEN: Soft, nontender. NERVOUS SYSTEM: No focal deficits. LABS: hemoglobin 11, sodium 136. ASSESSMENT: 1. Status post right knee medial plateau tibial fracture status post fall. 2. Hypertension. 3. Hypomagnesemia. 4. Increased AST and ALT. 5. History of breast cancer with radiation. 6. History of hysterectomy. 7. Mild hyponatremia, rule out urinary tract infection. 8. FULL CODE. RECOMMENDATIONS: Continue current management, monitoring and symptomatic treatment at this time. I recommend to continue with current medications. Continue with symptomatic treatment. DVT prophylaxis. I would also recommend urine culture. Further recommendations to follow. MMODL / IJN: [id number] / GUANACO
[2018-06-19] MEDS: HEPARIN SODIUM,PORCINE 5,000 UNIT/ML 1 ML VIAL SQ SCH ×3 (06:54→23:30)
[2018-06-19] MEDS: MULTIVITAMINS, THERA 1 EACH TAB PO SCH (06:55)
[2018-06-19] MEDS: LOSARTAN 50 MG TAB PO SCH (06:55)
[2018-06-19] MEDS: PANTOPRAZOLE 40 MG TABLET PO SCH (06:55)
[2018-06-19 07:47] LABS: Basophils % (A) 0 %; Eosinophils # (A) 0.1 k/uL (0-0.7); Eosinophils % (A) 1 %; HGB 10.6 gm/dL (11.4-16.0); Lymphocytes # (A) 1.4 k/uL (1.0-4.8); Lymphocytes % (A) 17 %; MCH 32.8 pg (25.0-35.0); MCHC 32.3 g/dL (31.0-37.0); MCV 101.8 fL (80.0-100.0); Macrocytosis Slight; Mean Platelet Volume 6.9; Monocytes # (A) 0.4 k/uL (0-1.0); Monocytes % (A) 4 %; Neutrophils # (A) 6.6 k/uL (1.3-7.7); Neutrophils % (A) 77 %; Platelet Count 182 k/uL (150-450); RBC 3.24 m/uL (3.80-5.40); WBC 8.5 k/uL (3.8-10.6)
[2018-06-19 07:51] LABS: Albumin 3.3 g/dL (3.5-5.0); Calcium 9.2 mg/dL (8.4-10.2); Potassium 4.1 mmol/L (3.5-5.1); Total Bilirubin 1.1 mg/dL (0.2-1.3)
[2018-06-19] MEDS: ACETAMINOPHEN TAB 325 MG TAB PO PRN ×3 (09:34→20:36)
[2018-06-19] MEDS: SODIUM CHLORIDE 0.9% 1,000 ML IV SCH (10:47)
--- NOTE | 2018-06-19 14:30 | P.PN ---
Subjective Progress Note Date: 06/19/18 Principal diagnosis: Status post ORIF right medial and lateral tibial plateau fracture Patient evaluated today at bedside, who presents present with her. She is resting comfortably. She does have minimal pain involving the right knee. She has not worked with physical therapy at this time. She denies any fevers or chills, shortness of breath or chest pain. Objective - Vital Signs Vital signs: Vital Signs Temp 98.5 F 06/19/18 06:49 Pulse 77 06/19/18 06:49 Resp 14 06/19/18 06:49 BP 132/80 06/19/18 06:49 Pulse Ox 97 06/19/18 06:49 Intake & Output 06/18/18 06/19/18 06/19/18 18:59 06:59 18:59 Intake Total 1061 360 Output Total 342 900 500 Balance 719 -900 -140 Intake: IV 901 Intake, IV Titration 160 Amount Sodium Chloride 0.9% 1, 160 000 ml @ 20 mls/hr IV . Q24H [facility] Rx#:[id number] Oral 360 Output: Urine 340 900 500 Uretheral (Vences) 500 Estimated Blood Loss 2 Other: Voiding Method Indwelling Catheter # Voids 1 - Exam Right lower extremity: Initial postoperative bandage is removed, nickolas are in good position. No active drainage. No soaking of care is a soft tissue swelling or ecchymosis. Calf is soft, no tenderness with palpation, distal neurovascular exam is intact. - Labs CBC & Chem 7: 06/19/18 07:26 06/19/18 07:26 Labs: Abnormal Lab Results - Last 24 Hours (Table) 06/19/18 06/19/18 Range/Units 07:26 07:26 RBC 3.24 L (3.80-5.40) m/uL Hgb 10.6 L (11.4-16.0) gm/dL Hct 33.0 L (34.0-46.0) % MCV 101.8 H (80.0-100.0) fL Sodium 134 L (137-145) mmol/L Glucose 106 H (74-99) mg/dL ALT 57 H (9-52) U/L Total Protein 6.0 L (6.3-8.2) g/dL Albumin 3.3 L (3.5-5.0) g/dL Assessment and Plan Plan: Assessment: 1. Postop day 1 status post ORIF right medial and lateral tibial plateau fracture Plan: Pain control, continue current medication Nonweightbearing right lower extremity, utilizing the immobilizer Ice and elevate often GI and DVT prophylaxis, continue current medication Other medical specialty recommendations Discharge planning: Patient will be discharged likely to home tomorrow Time with Patient: Less than 30
--- NOTE | 2018-06-19 19:47 | PN ---
PROGRESS NOTE DATE OF SERVICE: 06/19/2018 This 67-year-old woman was admitted after right knee medial plateau tibial fracture is still complaining of some pain. No chest pain. No palpitations. No fever. EXAM: Alert and oriented x3. Pulse 91, blood pressure 120/69, respiratory 16, temperature 98 degrees, pulse ox 97% on room air. HEENT: Conjunctivae normal. NECK: No jugular venous distention. CARDIOVASCULAR: S1, S2. RESPIRATORY: Breath sounds diminished in the bases. No rhonchi. ABDOMEN: Soft. LEGS: Status post knee surgery. NERVOUS SYSTEM: No focal deficits. LABS: WBC 8, hemoglobin is 10.2, sodium 134, glucose 106. Total bilirubin is 1.1. ASSESSMENT: 1. Status post right knee medial plateau tibial fracture status post fall and open reduction and internal fixation of the right medial and lateral tibial plateau fractures. 2. Hypertension. 3. Hypomagnesia. 4. AST, ALT, improving. 5. History of breast cancer with radiation. 6. History of hysterectomy. 7. Mild hyponatremia. 8. FULL CODE. RECOMMENDATIONS AND DISCUSSION: I recommend to continue current management, monitoring and symptomatic treatment. Otherwise at this time I recommend DVT prophylaxis. Repeat labs. Pain management. Increase ambulation. The rest of the medications and recommendations per Orthopedic Surgery. Further recommendations to follow. MMODL / IJN: [id number] /
[2018-06-20 08:08] LABS: Basophils % (A) 1 %; Eosinophils # (A) 0.1 k/uL (0-0.7); Eosinophils % (A) 2 %; HCT 32.6 % (34.0-46.0); HGB 10.4 gm/dL (11.4-16.0); Lymphocytes # (A) 1.4 k/uL (1.0-4.8); Lymphocytes % (A) 26 %; MCH 32.7 pg (25.0-35.0); MCV 102.1 fL (80.0-100.0); Macrocytosis Slight; Mean Platelet Volume 6.7; Monocytes # (A) 0.4 k/uL (0-1.0); Monocytes % (A) 7 %; Neutrophils # (A) 3.2 k/uL (1.3-7.7); Neutrophils % (A) 62 %; Platelet Count 167 k/uL (150-450); RDW 13.3 % (11.5-15.5); WBC 5.2 k/uL (3.8-10.6)
[2018-06-20 08:17] VITALS: BP 156/89; PULSE 77; RESP 12; TEMP 98.5
[2018-06-20 08:48] LABS: Albumin 3.1 g/dL (3.5-5.0); Calcium 9.3 mg/dL (8.4-10.2); Potassium 4.5 mmol/L (3.5-5.1); Total Protein 5.6 g/dL (6.3-8.2)
[2018-06-20] MEDS: SODIUM CHLORIDE 0.9% 1,000 ML IV SCH (09:05)
[2018-06-20] MEDS: PANTOPRAZOLE 40 MG TABLET PO SCH (09:11)
[2018-06-20] MEDS: MULTIVITAMINS, THERA 1 EACH TAB PO SCH (09:11)
[2018-06-20] MEDS: LOSARTAN 50 MG TAB PO SCH (09:11)
[2018-06-20] MEDS: HEPARIN SODIUM,PORCINE 5,000 UNIT/ML 1 ML VIAL SQ SCH ×2 (09:11→15:34)
[2018-06-20] MEDS: ACETAMINOPHEN TAB 325 MG TAB PO PRN ×2 (09:15→16:57)
--- NOTE | 2018-06-20 13:06 | P.PN ---
Subjective Progress Note Date: 06/20/18 Principal diagnosis: Status post ORIF right medial and lateral tibial plateau fracture Patient evaluated today at bedside, who presents present with her. She is resting comfortably. She does have minimal pain involving the right knee. She denies any fevers or chills, shortness of breath or chest pain. Objective - Vital Signs Vital signs: Vital Signs Temp 98.5 F 06/20/18 07:00 Pulse 77 06/20/18 07:00 Resp 12 06/20/18 07:00 BP 156/89 06/20/18 07:00 Pulse Ox 94 L 06/20/18 07:00 Intake & Output 06/19/18 06/20/18 06/20/18 18:59 06:59 18:59 Intake Total 840 Output Total 500 Balance 340 Intake: Oral 840 Output: Urine 500 Uretheral (Vences) 500 Other: Voiding Method Toilet Toilet Bedside Commode Bedside Commode # Voids 1 4 - Exam Right lower extremity: Initial postoperative bandage is removed, nickolas are in good position. No active drainage. No soaking of care is a soft tissue swelling or ecchymosis. Calf is soft, no tenderness with palpation, distal neurovascular exam is intact. - Labs CBC & Chem 7: 06/20/18 07:23 06/20/18 07:23 Labs: Abnormal Lab Results - Last 24 Hours (Table) 06/20/18 06/20/18 Range/Units 07:23 07:23 RBC 3.20 L (3.80-5.40) m/uL Hgb 10.4 L (11.4-16.0) gm/dL Hct 32.6 L (34.0-46.0) % MCV 102.1 H (80.0-100.0) fL Chloride 108 H (98-107) mmol/L AST 57 H (14-36) U/L ALT 67 H (9-52) U/L Total Protein 5.6 L (6.3-8.2) g/dL Albumin 3.1 L (3.5-5.0) g/dL Assessment and Plan Plan: Assessment: Postop day #2 status post ORIF right medial and lateral tibial plateau fracture Plan: Pain control, we'll discharge home on tramadol 50 mg Nonweightbearing right lower extremity, utilizing the immobilizer Ice and elevate often GI and DVT prophylaxis, continue current medication Other medical specialty recommendations Discharge planning: Discharged home today Time with Patient: Less than 30
--- NOTE | 2018-06-20 13:13 | P.DS ---
Providers Date of admission: 06/17/18 10:30 Expected date of discharge: 06/20/18 Attending physician: Mikey Otero Consults: 06/17/18 13:44 Consult Physician Routine Consulting Provider: Nery Lewis Consult Reason/Comments: Medical Management Do you want consulting provider notified?: Yes Primary care physician: Suleiman Mayen [facility] Course: Date of admission: 06/17/2018 Date of discharge: 06/20/2018 Admission diagnosis: right knee medial and lateral tibial plateau fracture Discharge diagnosis: status post ORIF right knee medial and lateral tibial plateau fracture Attending physician: Dr. Otero Surgical procedures: ORIF right knee medial and lateral tibial plateau fracture Brief history: patient is a 67-year-old female who presented to the hospital on 06/17/2018 after sustaining a fall 06/16/2018 that resulted in a right knee injury. She slipped apparently on some ice. Imaging test demonstrated a right knee medial and lateral tibial plateau fracture. She was admitted under orthopedic care with plan for surgical intervention. Proper clearances were achieved for surgery. Hospital course: Details of patient's surgery can be found in operative report. Patient tolerated the procedure well and was subsequently transported to orthopedic floor. Patient's orthopeidc and medical care was provided daily. Patient had daily laboratory tests performed for evaluation of overall blood counts Patient had daily physical therapy to include strengthening range of motion as well as education with walker ambulation. Patient was treated with Lovenox for their postoperative DVT prophylaxis during their inpatient stay. Patient was noted to have a relatively uneventful postoperative course. Patient reported satisfactory pain control with oral pain medications by postoperative day 0. Patient showed satisfactory progress with physical therapy. Patient moved steadily through the program and had no difficulty meeting the goals by postoperative day 2. Given patient's otherwise satisfactory course and having met physical therapy goals, plan is to discharge patient home on postoperative day 2. Discharge condition/disposition: Patient will be discharged home in stable condition. Discharge medications: Instructions are given on resumption of patient's normal daily medications per primary care recommendation, in addition patient will be prescribed tramadol 50 mg aspirin 325 mg. Discharge instructions: 1. Wound care and infection precautions, keep incision dry and covered while showering, no lotions, creams, moisturizers. No soaking, tubs, pools, hottubs. Do not scrub over the incision. 2. Nonweightbearing right lower extremity, utilize walker or wheelchair 3. Ice and elevate when necessary. Do not exceed 20 minutes per hour with ice pack. 4. Utilize compression sleeve until seen at first follow up appointment. 7. Pain meds and anticoagulants per prescription. 8. Pain medication has potential to cause constipation. Increase oral fluid and fiber intake. Contact primary care provider if you have not had a bowel movement within 48 hours after discharge 10. Follow up in office at 2 weeks postop with Dinh Hodge PA-C 11. Follow up with your primary care doctor 7-10 days after discharge. 12. Contact [facility] with any questions, . Procedures: Open reduction internal fixation right knee medial and lateral tibial plateau fracture Patient Condition at Discharge: Good Plan - Discharge Summary Discharge Rx Participant: No New Discharge Prescriptions: New Aspirin 325 mg PO DAILY #30 tab traMADol HCl [Ultram] 50 mg PO Q6H PRN #28 tab PRN Reason: Pain No Action Losartan [Cozaar] 50 mg PO DAILY Multivit-Min/FA/Lycopen/Lutein [Centrum Silver Tablet] 1 tab PO DAILY Discharge Medication List Losartan [Cozaar] 50 mg PO DAILY 01/23/18 [History] Multivit-Min/FA/Lycopen/Lutein [Centrum Silver Tablet] 1 tab PO DAILY 06/17/18 [ History] Aspirin 325 mg PO DAILY #30 tab 06/20/18 [Rx] traMADol HCl [Ultram] 50 mg PO Q6H PRN #28 tab 06/20/18 [Rx] Follow up Appointment(s)/Referral(s): [facility] [NON-STAFF] - 1 Week (wheelchair) Suleiman Solomon MD [Primary Care Provider] - 3 Days [facility], [NON-STAFF] - As Needed Cesar Hodge PAC [PHYSICIAN SLOT ROUTER] - 2 Weeks Activity/Diet/Wound Care/Special Instructions: Discharge instructions: 1. Nonweightbearing right lower extremity, he utilize knee immobilizer 2. Utilize walker or wheelchair 3. Ice and elevate often 4. Keep incisions clean and dry while showering, do not remove nickolas 5. Aspirin 325 mg daily for DVT prophylaxis 6. Pain medication as needed, ibuprofen or Aleve as needed also 7. Follow-up at [facility] in 2 weeks Discharge Disposition: HOME SELF-CARE
--- NOTE | 2018-06-20 19:40 | PN ---
PROGRESS NOTE DATE OF SERVICE: 06/20/2018 This 67-year-old woman who was admitted after right knee medial patellar fracture is being closely monitored. No chest pain. No palpitations. No fever. EXAM: Alert and oriented x3. Pulse 77. Blood pressure 140/89, respiration 12, temperature 98.5, pulse ox 94 percent on room air. HEENT: Conjunctivae normal. NECK: No jugular venous distention. Cardiovascular: S1, S2 muffled. RESPIRATORY: Breath sounds diminished in the bases. No rhonchi. No crackles. Abdomen soft. Legs: Status post knee arthroplasty. Central nervous system: No focal deficits. LABS: WBC 5.1, hemoglobin is 10.4, sodium 138, potassium 4.5, AST/ALT noted. ASSESSMENT: 1. Status post right knee medial plateau tibial fracture, status post fall and open reduction internal fixation of the right medial and lateral tibial plateau fracture. 2. Hypertension. 3. Hypomagnesium. 4. AST/ALT improving. 5. History of breast cancer with radiation. 6. History of hysterectomy. 7. Mild hyponatremia. 8. FULL CODE. RECOMMENDATIONS AND DISCUSSION: Recommend to continue current medications, symptomatic treatment. Otherwise, closely follow with Orthopedic surgery. DVT prophylaxis. Further recommendations to follow. MMODL / IJN: [id number] /
== END 2018-06-20 17:15 | disposition home health service (06) | DRG 493 ==
LOC: EC 07:47 → 4SSUR 10:30
PROVIDERS: ADMIT Orthopaedic Surgery; ATTEND Orthopaedic Surgery
PROC: 0QSG04Z Reposition Right Tibia with Internal Fixation Device, Open Approach (ICD-10-PCS; principal; 2018-06-18 08:59)
DX: S82.141A Displaced bicondylar fracture of right tibia, initial encounter for closed fracture (principal); E87.1 Hypo-osmolality and hyponatremia; E83.42 Hypomagnesemia; I10 Essential (primary) hypertension; Z79.899 Other long term (current) drug therapy; Z90.710 Acquired absence of both cervix and uterus; Z85.3 Personal history of malignant neoplasm of breast; Z92.3 Personal history of irradiation; Z88.2 Allergy status to sulfonamides; W00.0XXA Fall on same level due to ice and snow, initial encounter; Z82.49 Family history of ischemic heart disease and other diseases of the circulatory system; Z80.9 Family history of malignant neoplasm, unspecified
CPT/HCPCS: 36415; 64490; 71046; 72170; 80053; 81001; 82550; 82553; 83735; 85025; 93005; 99285

== ENCOUNTER → 2018-09-05 | Outpatient (CLI) | payer MEDICARE, OTHER ==
--- NOTE | 2018-09-05 11:15 | MM ---
Reason for exam: follow-up at short interval from prior study. Last mammogram was performed 6 months ago. History: Patient is postmenopausal, has history of breast cancer at age 65, history of other cancer, and had first child at age 37. Family history of breast cancer in 2 maternal aunts at age 60. Malignant MG stereo VAD BX RT of the right breast, June 14, 2016. Benign excisional biopsy of the left breast, 2012. Took estrogen beginning at age 41. Took progesterone beginning at age 41. Physical Findings: Nurse did not find any significant physical abnormalities on exam. MG 3D Diag Mammo W/Cad LT CC and MLO view(s) were taken of the left breast. Prior study comparison: March 10, 2018, bilateral MG 3d diag mammo w/cad LEISA. March 02, 2017, bilateral MG 3d diag mammo w/cad LEISA. The breast tissue is heterogeneously dense. This may lower the sensitivity of mammography. Previous mammotome biopsy in the left breast. No significant new findings when compared with previous films. These results were verbally communicated with the patient and result sheet given to the patient on 09/05/18. ASSESSMENT: Benign, BI-RAD 2 RECOMMENDATION: Follow-up diagnostic mammogram of both breasts in 6 months. Back on schedule.
== END ==
LOC: RADMAMWWP 09:31
PROVIDERS: ATTEND Radiology Radiation Oncology
DX: D05.11 Intraductal carcinoma in situ of right breast (principal)
CPT/HCPCS: 77065; G0279; 77061

== ENCOUNTER → 2018-10-02 | Outpatient (CLI) | payer MEDICARE, OTHER ==
--- NOTE | 2018-10-02 14:41 | US ---
EXAMINATION TYPE: US venous doppler duplex LE RT DATE OF EXAM: 10/02/2018 2:04 PM COMPARISON: NONE CLINICAL HISTORY: I80.01 PHLEBITIS AND THROMBOPHLEBITIS OF RT LOWER EXT. pain in foot SIDE PERFORMED: Right TECHNIQUE: The lower extremity deep venous system is examined utilizing real time linear array sonog hillary with graded compression, doppler sonography and color-flow sonography. VESSELS IMAGED: External Iliac Vein (EIV) Common Femoral Vein Deep Femoral Vein Greater Saphenous Vein * Femoral Vein Popliteal Vein Small Saphenous Vein * Proximal Calf Veins (* superficial vessels) PTV veins Right Leg: Negative for DVT Grayscale, color doppler, spectral doppler imaging performed of the deep veins of the right lower ext remity. There is normal flow, compressibility, vascular waveforms. IMPRESSION: No sonographic evidence of deep venous thrombosis within the right lower extremity.
== END ==
LOC: RADUSWWP 13:17
PROVIDERS: ATTEND Family Medicine
DX: I80.01 Phlebitis and thrombophlebitis of superficial vessels of right lower extremity (principal)

== ENCOUNTER → 2019-03-07 | Outpatient (CLI) | payer MEDICARE, OTHER ==
[2019-03-07 09:53] LABS: Basophils # (A) 0.1 k/uL (0-0.2); Basophils % (A) 2 %; Eosinophils # (A) 0.2 k/uL (0-0.7); Eosinophils % (A) 4 %; HCT 44.7 % (34.0-46.0); HGB 14.1 gm/dL (11.4-16.0); Lymphocytes # (A) 1.6 k/uL (1.0-4.8); Lymphocytes % (A) 30 %; MCH 31.8 pg (25.0-35.0); MCHC 31.5 g/dL (31.0-37.0); MCV 101.1 fL (80.0-100.0); Mean Platelet Volume 6.6; Monocytes # (A) 0.4 k/uL (0-1.0); Monocytes % (A) 7 %; Neutrophils # (A) 2.9 k/uL (1.3-7.7); Neutrophils % (A) 54 %; Platelet Count 279 k/uL (150-450); RBC 4.42 m/uL (3.80-5.40); RDW 12.1 % (11.5-15.5); WBC 5.4 k/uL (3.8-10.6)
[2019-03-07 18:02] LABS: African American GFR (CKD) 77.2 (60.0-200.0); Albumin 4.7 g/dL (3.80-4.90); Albumin/Globulin Ratio 1.88 (1.60-3.17); Anion Gap 13.4 mmol/L (4.00-12.00); BUN/Creat Ratio 16.67 Ratio (12.00-20.00); Calcium 9.6 mg/dL (8.7-10.3); Carbon Dioxide 21.6 mmol/L (21.6-31.8); Chol/HDL Ratio 2.25; Globulin 2.5 g/dL (1.6-3.3); Potassium 4.7 mmol/L (3.5-5.5); Total Bilirubin 0.9 mg/dL (0.3-1.2); Total Protein 7.2 g/dL (6.2-8.2)
[2019-03-07 19:20] LABS: Hemoglobin A1C 4.7 % (4.0-6.0)
== END | disposition home or self-care (01) ==
LOC: LABWHC1 09:02
PROVIDERS: ATTEND Family Medicine
DX: Z13.220 Encounter for screening for lipoid disorders (principal); Z13.1 Encounter for screening for diabetes mellitus; I10 Essential (primary) hypertension
CPT/HCPCS: 36415; 80053; 80061; 83036; 85025

== ENCOUNTER → 2019-03-09 | Outpatient (CLI) | payer MEDICARE, OTHER ==
--- NOTE | 2019-03-12 08:57 | MM ---
Reason for exam: additional evaluation requested from prior study. Last mammogram was performed 6 months ago. History: Patient is postmenopausal, has history of breast cancer at age 65, history of other cancer, and had first child at age 37. Family history of breast cancer in 2 maternal aunts at age 60. Malignant MG stereo VAD BX RT of the right breast, June 14, 2016. Benign excisional biopsy of the left breast, 2012. Took estrogen beginning at age 41. Took progesterone beginning at age 41. Physical Findings: Nurse did not find any significant physical abnormalities on exam. MG 3D Diag Mammo W/Cad LEISA Bilateral CC and MLO view(s) were taken. Prior study comparison: September 05, 2018, left breast MG 3d diag mammo w/cad LT. March 10, 2018, bilateral MG 3d diag mammo w/cad LEISA. These results were verbally communicated with the patient and result sheet given to the patient on 03/09/19. ASSESSMENT: Incomplete: need additional imaging evaluation, BI-RAD 0 RECOMMENDATION: Ultrasound of the right breast.
--- NOTE | 2019-03-12 08:58 | USB ---
Reason for exam: additional evaluation requested from abnormal screening. History: Patient is postmenopausal, has history of breast cancer at age 65, history of other cancer, and had first child at age 37. Family history of breast cancer in 2 maternal aunts at age 60. Malignant MG stereo VAD BX RT of the right breast, June 14, 2016. Benign excisional biopsy of the left breast, 2012. Took estrogen beginning at age 41. Took progesterone beginning at age 41. US Breast Limited RT Right limited breast ultrasound including focal area of concern, retroareolar and axilla demonstrates a scar at 2 o'clock, vascular lumpectomy site. These results were verbally communicated with the patient and result sheet given to the patient on 03/09/19. ASSESSMENT: Benign, BI-RAD 2 RECOMMENDATION: Follow-up diagnostic mammogram of both breasts in 1 year.
== END | disposition home or self-care (01) ==
LOC: RADMAMWWP 10:34
PROVIDERS: ATTEND Radiology Radiation Oncology
DX: D05.11 Intraductal carcinoma in situ of right breast (principal); R92.8 Other abnormal and inconclusive findings on diagnostic imaging of breast; Z92.3 Personal history of irradiation
CPT/HCPCS: 77066; 76642; G0279; 77062

== ENCOUNTER → 2020-02-11 | Outpatient (CLI) | payer MEDICARE, OTHER ==
--- NOTE | 2020-02-11 11:54 | MM ---
Reason for exam: additional evaluation requested from prior study. Last mammogram was performed 11 months ago. History: Patient is postmenopausal, has history of breast cancer at age 65, history of other cancer, and had first child at age 37. Family history of breast cancer in 2 maternal aunts at age 60. Malignant MG stereo VAD BX RT of the right breast, June 14, 2016. Benign excisional biopsy of the left breast, 2012. Took estrogen for 11 years beginning at age 41. Took progesterone for 11 years beginning at age 41. Physical Findings: Nurse did not find any significant physical abnormalities on exam. MG 3D Diag Mammo W/Cad LEISA Bilateral CC and MLO view(s) were taken. Prior study comparison: March 09, 2019, bilateral MG 3d diag mammo w/cad LEISA. September 05, 2018, left breast MG 3d diag mammo w/cad LT. The breast tissue is heterogeneously dense. This may lower the sensitivity of mammography. Previous mammotome biopsy in the left breast. Post surgical and post therapy change right breast. 1.1cm circumscribed subareolar nodularity right MLO view. These results were verbally communicated with the patient and result sheet given to the patient on 02/11/20. ASSESSMENT: Incomplete: need additional imaging evaluation, BI-RAD 0 RECOMMENDATION: Ultrasound of the right breast.
--- NOTE | 2020-02-11 11:57 | USB ---
Reason for exam: additional evaluation requested from abnormal screening. History: Patient is postmenopausal, has history of breast cancer at age 65, history of other cancer, and had first child at age 37. Family history of breast cancer in 2 maternal aunts at age 60. Malignant MG stereo VAD BX RT of the right breast, June 14, 2016. Benign excisional biopsy of the left breast, 2012. Took estrogen for 11 years beginning at age 41. Took progesterone for 11 years beginning at age 41. US Breast RT Right complete breast ultrasound includes all four quadrants, the retroareolar region and axilla. Finding demonstrates a 1.5 x 2.3 x 0.9cm irregular, solid, hypoechoic lesion at 2 o'clock, previously measured 1.5 x 2.6 x 0.9cm, not significantly changed, likely excisional scar. No other solid or cystic lesion. 6 month follow up mammogram. These results were verbally communicated with the patient and result sheet given to the patient on 02/11/20. ASSESSMENT: Probably benign, BI-RAD 3 RECOMMENDATION: Follow-up diagnostic mammogram of the right breast in 6 months.
== END | disposition home or self-care (01) ==
LOC: RADMAMWWP 09:35
PROVIDERS: ATTEND Radiology Radiation Oncology
DX: R92.8 Other abnormal and inconclusive findings on diagnostic imaging of breast (principal); D05.11 Intraductal carcinoma in situ of right breast; Z17.1 Estrogen receptor negative status [ER-]; Z92.3 Personal history of irradiation
CPT/HCPCS: 77066; 76641; G0279; 77062

== ENCOUNTER → 2020-08-08 | Outpatient (CLI) | payer MEDICARE, OTHER ==
[2020-08-08 18:36] LABS: Basophils # (A) 0.03 X 10*3/uL (0.00-0.10); Basophils % (A) 0.6 %; Eosinophils # (A) 0.19 X 10*3/uL (0.04-0.35); Eosinophils % (A) 4.1 %; HCT 41.5 % (37.2-46.3); HGB 13.1 g/dL (12.0-15.0); Lymphocytes # (A) 1.78 X 10*3/uL (0.90-5.00); Lymphocytes % (A) 38.5 %; MCH 31.5 pg (27.0-32.0); MCHC 31.6 g/dL (32.0-37.0); MCV 99.8 fL (80.0-97.0); Mean Platelet Volume 10.3 fL (9.5-12.2); Monocytes # (A) 0.52 X 10*3/uL (0.20-1.00); Monocytes % (A) 11.3 %; Neutrophils # (A) 2.08 X 10*3/uL (1.80-7.70); Neutrophils % (A) 45.1 %; Platelet Count 201 X 10*3/uL (140-440); RBC 4.16 X 10*6/uL (4.10-5.20); RDW 13.1 % (11.5-14.5); WBC 4.62 X 10*3/uL (4.50-10.00)
[2020-08-08 20:55] LABS: Anion Gap 11.6 mmol/L (4.00-12.00); BUN/Creat Ratio 12.22 Ratio (12.00-20.00); Carbon Dioxide 24.4 mmol/L (21.6-31.8); Chol/HDL Ratio 2.26; LDL Cholesterol,Calculated 113.8 mg/dL (0.0-131.0); Potassium 4.2 mmol/L (3.5-5.5); VLDL Calculation 20.2 mg/dL (5.00-40.00)
[2020-08-08 20:56] LABS: African American GFR (CKD) 76.7 (60.0-200.0); Albumin 4.4 g/dL (3.80-4.90); Albumin/Globulin Ratio 1.91 (1.60-3.17); Calcium 10.1 mg/dL (8.7-10.3); Globulin 2.3 g/dL (1.6-3.3); Non-African American GFR(CKD) 66.2 (60.0-200.0); Total Bilirubin 0.7 mg/dL (0.3-1.2); Total Protein 6.7 g/dL (6.2-8.2)
== END | disposition home or self-care (01) ==
LOC: LABWHC1 09:52
PROVIDERS: ATTEND Family Medicine
DX: I10 Essential (primary) hypertension (principal); M85.80 Other specified disorders of bone density and structure, unspecified site
CPT/HCPCS: 36415; 80053; 80061; 82306; 83036; 85025

== ENCOUNTER → 2020-08-11 | Outpatient (CLI) | payer MEDICARE, OTHER ==
--- NOTE | 2020-08-11 13:58 | MM ---
Reason for exam: follow-up at short interval from prior study. Last mammogram was performed 6 months ago. History: Patient is postmenopausal, has history of breast cancer at age 65, history of other cancer, and had first child at age 37. Family history of breast cancer in 2 maternal aunts at age 60. Malignant MG stereo VAD BX RT of the right breast, June 14, 2016. Benign excisional biopsy of the left breast, 2012. Took estrogen for 11 years beginning at age 41. Took progesterone for 11 years beginning at age 41. Physical Findings: Nurse did not find any significant physical abnormalities on exam. MG 3D Diag Mammo W/Cad RT CC and MLO view(s) were taken of the right breast. Prior study comparison: February 11, 2020, bilateral MG 3d diag mammo w/cad LEISA. March 09, 2019, bilateral MG 3d diag mammo w/cad LEISA. The breast tissue is heterogeneously dense. This may lower the sensitivity of mammography. Finding #1: There is stable architectural distortion in the inner quadrant, posterior position of the right breast consistent with known lumpectomy changes. Finding #2: There are typically benign round calcifications in the right breast. There is no discrete abnormality. These results were verbally communicated with the patient and result sheet given to the patient on 08/11/20. ASSESSMENT: Benign, BI-RAD 2 RECOMMENDATION: Follow-up diagnostic mammogram of both breasts in 6 months. Back on schedule.
== END | disposition home or self-care (01) ==
LOC: RADMAMWWP 12:37
PROVIDERS: ATTEND Radiology Radiation Oncology
DX: D05.11 Intraductal carcinoma in situ of right breast (principal); Z17.1 Estrogen receptor negative status [ER-]; Z92.3 Personal history of irradiation
CPT/HCPCS: 77065; G0279; 77061

== ENCOUNTER 2020-12-08 13:10 | Emergency (ER) | payer MEDICARE, OTHER ==
[2020-12-08 13:26] VITALS: PULSE 88; TEMP 98.6
[2020-12-08] MEDS ORDERED: ONDANSETRON ODT 4 MG TAB PO STA (14:27)
[2020-12-08] MEDS ORDERED: DIPH,PERTUS(ACELL)TETVAC-LF 0.5 ML VIAL IM ONE (14:27)
[2020-12-08] MEDS: MORPHINE SULFATE 4 MG/ML SYRINGE IM STA ×2 (14:37→14:42)
[2020-12-08] MEDS ORDERED: MORPHINE SULFATE 4 MG/ML SYRINGE IM STA (14:56)
--- NOTE | 2020-12-08 15:17 | CT ---
EXAMINATION TYPE: CT brain kennedy wo con DATE OF EXAM: 12/08/2020 COMPARISON: None HISTORY: 70-year-old female with pain after Trip and fall today. Left temporal injury. CT DLP: 1246.6 mGycm Automated exposure control for dose reduction was used. Technique: Examination of the head was done in axial plane without intravenous contrast. Coronal and sagittal reconstructions performed. CT of the cervical spine was obtained in axial plane without intravenous injection of contrast mater ial. Coronal and sagittal reformatted images were obtained from the axial views for evaluation of f ractures, spinal alignment and canal. FINDINGS: Head: There is no evidence of acute intracranial hemorrhage, acute ischemic changes, mass, mass-effect, or extra-axial fluid collection. There is no effacement of cerebral sulci or basal subarachnoid cister ns. There is no hydrocephalus. There is no midline shift. Padilla-white matter distinction is preserv ed. There is a left temporal-left lateral periorbital laceration and soft tissue contusion. No underlying calvarial fracture. Benign basal ganglia calcifications. Mild patchy white matter hypodensities in both cerebral hemisphe res. Paranasal sinuses and mastoid air cells are well pneumatized. Orbits and globes appear intact. Cervical spine: No craniocervical junction and remodeling, predental space widening, or prevertebral soft tissue swel ling. Advanced hypertrophic facet arthropathy. Degenerative grade 1 anterolisthesis C5-C6 and C6-C7. No evidence for canal compromise by CT. No acute fracture of the cervical spine. Variable mild neuroforaminal narrowing throughout. Biapical pleural-parenchymal scarring Sagittal and coronal reformatted images confirm above findings. COMBINED IMPRESSION: 1. Soft tissue/scalp laceration left temporal/lateral left periorbital region. No underlying calvaria l fracture. No acute intracranial abnormality seen. 2. No acute fracture of the cervical spine. Advanced hypertrophic facet arthropathy with degenerative grade 1 anterolisthesis C5-C6 and C6-C7.
--- NOTE | 2020-12-08 15:51 | XR ---
EXAMINATION TYPE: XR humerus 2 views LT, XR wrist complete 4 views LT, XR elbow complete 3 views LT DATE OF EXAM: 12/08/2020 COMPARISON: NONE HISTORY: 70-year-old female pain after fall FINDINGS: Left humerus: Chronic bony deformity at the distal left clavicle, unchanged from the chest radiograph of 06/17/2018. No acute fracture seen. Left elbow: There is an intra-articular fracture along the lateral third margin of the radial head with approxima tely 3 mm of articular surface depression. Associated moderate to large elbow joint effusion. No subl uxation or dislocation. Left wrist: Moderate degenerative change at the first CMC and triscaphe joints. Radiocarpal and distal radioulnar joint as well as the midcarpal compartment appear intact. No acute fracture, subluxation, or disloca tion. IMPRESSION: 1. Left humerus: Chronic bony deformity distal left clavicle. No acute osseous abnormality seen. 2. Left elbow: Acute intra-articular fracture along the lateral third margin of the radial head with approximately 3 mm of articular surface impaction. Associated elbow joint effusion. 3. 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 No acute osseous abnormality seen.
--- NOTE | 2020-12-08 15:57 | ED ---
General Adult HPI - General Chief complaint: Fall Stated complaint: Fall Time Seen by Provider: 12/08/20 13:54 Source: patient Mode of arrival: wheelchair Limitations: no limitations - History of Present Illness Initial comments: 62-year-old female presents to the emergency room for a chief complaint of fall. Patient was walking through a parking lot when she tripped over uneven pavement and fell. Patient did hit her head and landed on her elbow. Patient's pain complaint is elbow pain. Patient also has mild headache. Patient denies loss of consciousness. Denies taking blood thinners.Patient has no other complaints at this time including shortness of breath, chest pain, abdominal pain, nausea or vomiting, headache, or visual changes. - Related Data Home Medications Medication Instructions Recorded Confirmed Losartan [Cozaar] 50 mg PO DAILY 01/23/18 06/17/18 Multivit-Min/FA/Lycopen/Lutein 1 tab PO DAILY 06/17/18 06/17/18 [Centrum Silver Tablet] Previous Rx's Medication Instructions Recorded Aspirin 325 mg PO DAILY #30 tab 06/20/18 traMADol HCl [Ultram] 50 mg PO Q6H PRN #28 tab 06/20/18 Allergies Allergy/AdvReac Type Severity Reaction Status Date / Time Sulfa (Sulfonamide Allergy Rash/Hives Verified 12/08/20 13:26 Antibiotics) Review of Systems ROS Statement: Those systems with pertinent positive or pertinent negative responses have been documented in the HPI. ROS Other: All systems not noted in ROS Statement are negative. Past Medical History Past Medical History: Cancer, Hypertension Additional Past Medical History / Comment(s): breast cancer with radiation, History of Any Multi-Drug Resistant Organisms: None Reported Past Surgical History: Breast Surgery, Hysterectomy Additional Past Surgical History / Comment(s): right sided lumpectomy in June 2016, partial right mastectomy Past Anesthesia/Blood Transfusion Reactions: No Reported Reaction Past Psychological History: No Psychological Hx Reported Smoking Status: Never smoker Past Alcohol Use History: Daily Past Drug Use History: None Reported - Past Family History Father Family Medical History: Coronary Artery Disease (CAD) Mother Family Medical History: Cancer General Exam - General Exam Comments Initial Comments: Left arm: Patient has tenderness to the left elbow. Able to flex elbow to 90 and extend almost to neutral position. No tenderness in the shoulder pain with the shoulder. Mild distal humeral tenderness. No tenderness in the forearm. Mild tenderness in the posterior wrist however no scaphoid tenderness or tenderness in the hand. Radial pulses 2+. Capillary refill less than 2 seconds. No lacerations or abrasions. Limitations: no limitations General appearance: alert Head exam: Absent: atraumatic (Patient has a 1 cm laceration noted to the left eyebrow) Eye exam: Present: normal appearance, PERRL, EOMI. Absent: scleral icterus, conjunctival injection, periorbital swelling ENT exam: Present: normal exam, mucous membranes moist Neck exam: Present: normal inspection, full ROM. Absent: tenderness, meningismus, lymphadenopathy Respiratory exam: Present: normal lung sounds bilaterally. Absent: respiratory distress, wheezes, rales, rhonchi, stridor Cardiovascular Exam: Present: regular rate, normal rhythm, normal heart sounds. Absent: systolic murmur, diastolic murmur, rubs, gallop, clicks GI/Abdominal exam: Present: soft, normal bowel sounds. Absent: distended, tenderness, guarding, rebound, rigid Course Vital Signs 12/08/20 12/08/20 13:22 16:26 Temperature 98.6 F Pulse Rate 88 88 Respiratory 18 20 Rate Blood Pressure 143/86 130/90 O2 Sat by Pulse 100 98 Oximetry Procedures - Laceration Laceration #1 Consent Obtained: verbal consent Indication: laceration Site: face Size (cm): 2 Description: linear Depth: simple, single layer Type of Sutures: other (Micromed) Technique: simple, interrupted Patient Tolerated Procedure: well, no complications - Orthopedic Splinting/Casting Injury #1 Side: left Upper Extremity Injury Location: elbow Upper Extremity Immobilizer: posterior splint Additional Comments: Neurovascular status intact after splint applied. Medical Decision Making - Medical Decision Making Vitals are stable. HPI and physical exam as documented. CT brain shows a soft tissue scalp laceration left temporal lateral left periorbital region without underlying calvarial fracture or intracranial abnormality seen. No acute frac ture of the cervical spine. X-ray of the humerus elbow and wrist were obtained. The left elbow does show an acute intra-articular fracture along the lateral third margin of the radial head. Laceration was repaired with micro-med. Splint was applied. Patient will follow-up with orthopedics. Discussed care parameters for micro-med. They will return here for any worsening symptoms. Disposition Clinical Impression: Radial head fracture, Fall, Laceration Disposition: HOME SELF-CARE Condition: Good Instructions (If sedation given, give patient instructions): Elbow Fracture (ED) Additional Instructions: Peel off micro-med sticker in 5 days. Keep splint dry. Please follow-up with your doctor in one to 2 days. Return to the emergency room for any worsening symptoms. Is patient prescribed a controlled substance at d/c from ED?: No Referrals: Suleiman Solomon MD [Primary Care Provider] - 1-2 days Mikey Otero DO [Doctor of Osteopathic Medicine] - 1-2 days Time of Disposition: 16:44
[2020-12-08 16:26] VITALS: BP 130/90; RESP 20
[2020-12-08] MEDS ORDERED: ACET/COD 300 MG/30 MG STARTER PACK 6 TAB BTL PO STA (16:46)
== END 2020-12-08 16:56 | disposition home or self-care (01) ==
LOC: EC 13:10
DX: S52.122A Displaced fracture of head of left radius, initial encounter for closed fracture (principal); S01.01XA Laceration without foreign body of scalp, initial encounter; I10 Essential (primary) hypertension; Z23 Encounter for immunization; Z88.2 Allergy status to sulfonamides; W01.0XXA Fall on same level from slipping, tripping and stumbling without subsequent striking against object, initial encounter; Y93.01 Activity, walking, marching and hiking; Y92.481 Parking lot as the place of occurrence of the external cause
CPT/HCPCS: 73060; 73080; 73110; 72125; 70450; 90715; 99284; 12011; 29125; 96372; 90471; J2270

== ENCOUNTER → 2021-03-23 | Outpatient (CLI) | payer MEDICARE, OTHER ==
--- NOTE | 2021-03-25 11:01 | MM ---
Reason for exam: additional evaluation requested from prior study. Last mammogram was performed 7 months ago. History: Patient is postmenopausal, has history of breast cancer at age 65, history of other cancer, and had first child at age 37. Family history of breast cancer in 2 maternal aunts at age 60. Malignant MG stereo VAD BX RT of the right breast, June 14, 2016. Lumpectomy of the right breast, 2016. Benign excisional biopsy of the left breast, 2012. Took estrogen for 11 years beginning at age 41. Took progesterone for 11 years beginning at age 41. Physical Findings: Nurse did not find any significant physical abnormalities on exam. MG 3D Diag Mammo W/Cad LEISA Bilateral CC and MLO view(s) were taken. Prior study comparison: August 11, 2020, right breast MG 3d diag mammo w/cad RT. February 11, 2020, bilateral MG 3d diag mammo w/cad LEISA. March 09, 2019, bilateral MG 3d diag mammo w/cad LEISA. March 10, 2018, bilateral MG 3d diag mammo w/cad LEISA. The breast tissue is heterogeneously dense. This may lower the sensitivity of mammography. Previous mammotome biopsy in the left breast. There is chronic nodularity in the left breast. New 10 o'clock grouped calcifications left breast, biopsy recommended. Post surgical and post therapy change right breast are unchanged. These results were verbally communicated with the patient and result sheet given to the patient on 03/23/21. ASSESSMENT: Incomplete: need additional imaging evaluation, BI-RAD 0 RECOMMENDATION: Ultrasound of the left breast.
== END | disposition home or self-care (01) ==
LOC: RADMAMWWP 12:43
PROVIDERS: ATTEND Radiology Radiation Oncology
DX: Z08 Encounter for follow-up examination after completed treatment for malignant neoplasm (principal); Z86.000 Personal history of in-situ neoplasm of breast; Z17.1 Estrogen receptor negative status [ER-]; Z92.3 Personal history of irradiation; D50.1 Sideropenic dysphagia
CPT/HCPCS: 77066; 76641; G0279; 77062

== ENCOUNTER → 2021-04-27 | Day surgery (SDC) | payer MEDICARE, OTHER ==
[2021-04-27 07:09] VITALS: RESP 16
[2021-04-27 08:28] VITALS: BP 155/93; PULSE 84; TEMP 98
--- NOTE | 2021-04-27 13:47 | MM ---
EXAMINATION TYPE: MG stereo VAD BX LT DATE OF EXAM: 04/27/2021 COMPARISON: 05/23/2020 CLINICAL HISTORY: Abnormal mammogram TECHNIQUE: Stereotactic guided core biopsy of left breast. FINDINGS: The procedure of stereotactic guided core biopsy was explained to the patient. Benefits, alternatives, and risks were discussed. An informed consent was then obtained. Lateral to medial approach was utilized. A vacuum assisted biopsy device was used to obtain 7 core samples. Sample: Mammographic sample demonstrates calcifications localized within the sample. Clip placement: Clip was placed. There is migration of the clip following completion of the procedure. The patient tolerated the procedure well without any immediate complication. IMPRESSION: 1. Successful biopsy localized calcifications. 2. Clip migration following biopsy. Pathology Results: Benign LEFT BREAST, STEREOTACTIC CORE BIOPSY: Fibrocystic changes including columnar cell change/columnar cell hyperplasia and calcifications. Recommendation Follow up mammogram of the left breast in 6 months. GUANACO
== END ==
LOC: RADMAMWWP 06:59
PROVIDERS: ATTEND Radiology Radiation Oncology
DX: N60.12 Diffuse cystic mastopathy of left breast (principal); R92.1 Mammographic calcification found on diagnostic imaging of breast; R92.8 Other abnormal and inconclusive findings on diagnostic imaging of breast
CPT/HCPCS: 88305; 19081; A4648; J2001

== ENCOUNTER → 2021-09-23 | Outpatient (CLI) | payer MEDICARE, OTHER ==
--- NOTE | 2021-09-23 11:37 | MM ---
Reason for Exam: Follow-up at short interval from prior study. Last screening mammogram was performed 6 month(s) ago. Patient History: Menarche at age 15. First Full-Term at age 37. Late child-bearing (after 30). Left ovary removed at age 41. Right ovary removed at age 41. Hysterectomy at age 41. Postmenopausal. Breast cancer, age 65. Other cancer. Estrogen for 11 years from age 41 until age 52. Progesterone for 11 years from age 41 until age 52. 2016, Lumpectomy on the Right side. 2012, Benign Excisional Biopsy on the left side. 04/27/2021, Benign Core Biopsy on the left side. 06/14/2016, Malignant Core Biopsy on the right side. Maternal aunt had breast cancer, age 60. Maternal aunt had breast cancer, age 60. Film Views: Left CC views were taken. Left MLO views were taken. Prior Study Comparison: 02/11/2020 Bilateral Diagnostic Mammogram, [facility]. 08/11/2020 Right Diagnostic Mammogram, [facility]. 03/23/2021 Bilateral Diagnostic Mammogram, [facility]. Tissue Density: Left: The breast tissue is heterogeneously dense. This may lower the sensitivity of mammography. Findings: Analyzed By CAD. Prior core markers are evident. Scattered benign calcifications are present. No suspicious spiculated or lobular mass, clustered microcalcifications, architectural distortion, or other secondary signs of malignancy are radiographically apparent. Overall Assessment: Benign, BI-RAD 2 Management: Screening Mammogram of both breasts in 6 months. A clinical breast exam by your physician is recommended on an annual basis and results should be correlated with mammographic findings. This exam should not preclude additional follow-up of suspicious palpable abnormalities. Results were given to the patient verbally at the time of exam. Electronically signed and approved by: Wilder Ferreira D.O. Radiologis
== END | disposition home or self-care (01) ==
LOC: RADMAMWWP 10:56
PROVIDERS: ATTEND Radiology Radiation Oncology
DX: R92.8 Other abnormal and inconclusive findings on diagnostic imaging of breast (principal); Z78.0 Asymptomatic menopausal state; Z80.3 Family history of malignant neoplasm of breast; Z90.721 Acquired absence of ovaries, unilateral
CPT/HCPCS: 77065; G0279; 77061

== ENCOUNTER → 2021-12-07 | Outpatient (CLI) | payer MEDICARE, OTHER ==
[2021-12-07 14:40] LABS: Basophils # (A) 0.05 X 10*3/uL (0.00-0.10); Basophils % (A) 1.4 %; Eosinophils # (A) 0.11 X 10*3/uL (0.04-0.35); Immature Grans, Automated 0.3 %; Lymphocytes # (A) 1.56 X 10*3/uL (0.90-5.00); Lymphocytes % (A) 42.4 %; MCH 32.1 pg (27.0-32.0); MCHC 32.5 g/dL (32.0-37.0); MCV 98.8 fL (80.0-97.0); Mean Platelet Volume 9.4 fL (9.5-12.2); Monocytes % (A) 10.9 %; NRBC Per 100 WBC 0 /100 WBCS (0.0-0.0); Neutrophils # (A) 1.55 X 10*3/uL (1.80-7.70); Platelet Count 194 X 10*3/uL (140-440); RBC 4.05 X 10*6/uL (4.10-5.20); RDW 12.6 % (11.5-14.5); WBC 3.68 X 10*3/uL (4.50-10.00)
[2021-12-07 14:57] LABS: ALT 61 U/L (8-44); AST 70 U/L (13-35); African American GFR (CKD) 75.8 (60.0-200.0); Albumin 4.2 g/dL (3.8-4.9); Alkaline Phosphatase 114 U/L (41-126); BUN/Creat Ratio 11.36 Ratio (12.00-20.00); Blood Urea Nitrogen 10.2 mg/dL (9.0-27.0); Calcium 9.9 mg/dL (8.7-10.3); Carbon Dioxide 24.4 mmol/L (20.0-27.5); Chloride 106 mmol/L (96-109); Chol/HDL Ratio 2.23 Ratio; Globulin 3.2 g/dL (1.6-3.3); Glucose 86 mg/dL (70-110); Non-African American GFR(CKD) 65.4 (60.0-200.0); Potassium 4.1 mmol/L (3.5-5.5); Sodium 143 mmol/L (135-145); Total Protein 7.4 g/dL (6.2-8.2); VLDL Calculation 16.96 mg/dL (5.00-40.00)
== END | disposition home or self-care (01) ==
LOC: LABWHC1 09:13
PROVIDERS: ATTEND Internal Medicine Geriatric Medicine
DX: E03.9 Hypothyroidism, unspecified (principal); E78.5 Hyperlipidemia, unspecified; R94.5 Abnormal results of liver function studies; Z85.3 Personal history of malignant neoplasm of breast
CPT/HCPCS: 36415; 80053; 80061; 83036; 84439; 84443; 85025

== ENCOUNTER → 2022-03-24 | Outpatient (CLI) | payer MEDICARE, OTHER ==
--- NOTE | 2022-03-24 11:37 | MM ---
Reason for Exam: Additional evaluation requested from prior study. Last screening mammogram was performed 12 month(s) ago. Patient History: Menarche at age 15. First Full-Term at age 37. Late child-bearing (after 30). Left ovary removed at age 41. Right ovary removed at age 41. Hysterectomy at age 41. Postmenopausal. Patient has history of breast feeding. Breast cancer, right, age 65. Other cancer. Estrogen for 11 years from age 41 until age 52. Progesterone for 11 years from age 41 until age 52. 2016, Lumpectomy on the Right side. 2012, Benign Excisional Biopsy on the left side. 04/27/2021, Benign Core Biopsy on the left side. 06/14/2016, Malignant Core Biopsy on the right side. Maternal aunt had breast cancer, age 60. Maternal aunt had breast cancer, age 60. Mother had ovarian cancer at or over age 50. Prior Study Comparison: 03/02/2017 Bilateral Diagnostic Mammogram, [facility]. 03/10/2018 Bilateral Diagnostic Mammogram, [facility]. 09/05/2018 Left Diagnostic Mammogram, [facility]. 03/09/2019 Bilateral Diagnostic Mammogram, [facility]. 02/11/2020 Bilateral Diagnostic Mammogram, [facility]. 08/11/2020 Right Diagnostic Mammogram, [facility]. 03/23/2021 Bilateral Diagnostic Mammogram, [facility]. 09/23/2021 Left MG 3D diag mammo w/cad , [facility]. Tissue Density: The breast tissue is heterogeneously dense. This may lower the sensitivity of mammography. Findings: Analyzed By CAD. Chronic nodularity seen bilaterally. Prior lumpectomy changes right breast remain stable. Benign calcifications seen bilaterally. No suspicious clusters evident. Overall Assessment: Benign, BI-RAD 2 Management: Diagnostic Mammogram of both breasts in 1 year. A clinical breast exam by your physician is recommended on an annual basis and results should be correlated with mammographic findings. This exam should not preclude additional follow-up of suspicious palpable abnormalities. Results were given to the patient verbally at the time of exam. Electronically signed and approved by: Shawn Richard M.D. Radiologis
== END | disposition home or self-care (01) ==
LOC: RADMAMWWP 10:54
PROVIDERS: ATTEND Radiology Radiation Oncology
DX: D05.11 Intraductal carcinoma in situ of right breast (principal); Z78.0 Asymptomatic menopausal state; Z80.3 Family history of malignant neoplasm of breast; Z90.721 Acquired absence of ovaries, unilateral
CPT/HCPCS: 77066; G0279; 77062

== ENCOUNTER → 2022-08-30 | Outpatient (CLI) | payer MEDICARE, OTHER ==
--- NOTE | 2022-08-30 10:23 | BD ---
EXAMINATION TYPE: Axial Bone Density DATE OF EXAM: 08/30/2022 CLINICAL HISTORY: 71 years old Female. ICD-10 CODE: M81.0 OSTEOPOROSIS Height: 65.5 Weight: 167.1 FRAX RISK QUESTIONS: Alcohol (3 or more units per day): no Family History (Parent hip fracture): Mother and Father Glucocorticoids (More than 3mos): no History of Fracture in Adulthood: knee Secondary Osteoporosis: 1. Type 1 Diabetes: no 2. Hyperthyroidism: no 3. Menopause before 45: yes 4. Malnutrition: no 5. Chronic liver disease: no Rheumatoid Arthritis: no Current Tobacco Use: no RISK FACTORS HISTORY OF: Hip Fracture (Right/Left): no Spine Fracture: no History of Wrist Fracture: no Surgery to Spine/Hip(right/left)/Wrist (right/left): no Family History of Osteoporosis: Mother and Father Active: yes Diet low in dairy products/other sources of calcium: no Postmenopausal woman: no Take estrogen and/or progesterone medications: no Lost more than 2 inches in height since high school: yes Frequent falls: no Poor Health: no Hyperparathyroidism: no Adrenal Insufficiency: mo MEDICATIONS: Prednisone or other steroids: no Thyroid Medications: no Osteoporosis Medications: no Additional Medications: BP meds, Vit E, Vit D Additional History: EXAM MEASUREMENTS: Bone mineral densitometry was performed using the [employer] System. Bone mineral density as measured about the Lumbar spine is: ----- L1-L4(G/cm2): 0.962 T Score Values are as follows: ----- L1: -2.3 ----- L2: -2.0 ----- L3: -1.5 ----- L4: -1.7 ----- L1-L4: -1.8 Z Score Values are as follows: ----- L1: -1.0 ----- L2: -0.7 ----- L3: -0.2 ----- L4: -0.4 ----- L1-L4: -0.5 Baseline Study Bone mineral density about the R hip (g/cm2): 0.810 Bone mineral density about the L hip (g/cm2): 0.870 T Score values are as follows: -----R Neck: -1.2 -----L Neck: -1.0 -----R Total: -1.6 -----L Total: -1.1 Z Score values are as follows: -----R Neck: 0.2 -----L Neck: 0.4 -----R Total: -0.4 -----L Total: 0.1 Baseline Study FRAX%s: The graph provided illustrates a 14.5% chance for a major osteoporotic fx and a 2.2% chance f or the hips probability for fx in 10 years time. IMPRESSION: Osteopenia (T Score between -2.5 and -1). There is slightly increased risk of fracture and the patient may be considered for treatment. Re-Screen 2-5 years. NOTE: T-SCORE=SD OF THE YOUNG ADULT MEAN.
== END | disposition home or self-care (01) ==
LOC: RADBDWWP 07:49
PROVIDERS: ATTEND Internal Medicine Geriatric Medicine
DX: M81.0 Age-related osteoporosis without current pathological fracture (principal); M85.89 Other specified disorders of bone density and structure, multiple sites; Z78.0 Asymptomatic menopausal state
CPT/HCPCS: 77080

== ENCOUNTER → 2023-03-28 | Outpatient (CLI) | payer MEDICARE, OTHER ==
--- NOTE | 2023-03-28 10:43 | MM ---
Reason for Exam: Hx of breast cancer, conservation therapy. Last screening mammogram was performed 12 month(s) ago. Patient History: Menarche at age 15. First Full-Term at age 37. Late child-bearing (after 32). Left ovary removed at age 41. Right ovary removed at age 41. Hysterectomy at age 41. Postmenopausal. Patient has history of breast feeding. Breast cancer, right, age 65. Estrogen for 11 years from age 41 until age 52. Progesterone for 11 years from age 41 until age 52. 2016, Lumpectomy on the Right side. 2012, Benign Excisional Biopsy on the left side. 04/27/2021, Benign Core Biopsy on the left side. 06/14/2016, Malignant Core Biopsy on the right side. Maternal aunt had breast cancer, age 60. Maternal aunt had breast cancer, age 60. Mother had ovarian cancer at or over age 50. Tissue Density: The breast tissue is heterogeneously dense. This may lower the sensitivity of mammography. Findings: Analyzed By CAD. Bilateral benign appearing consultations. Left breast biopsy clips. No new suspicious masses, calcifications or distortions. Overall Assessment: Benign, BI-RAD 2 Management: Screening Mammogram of both breasts in 1 year. Results were given to the patient verbally at the time of exam. Patient should continue monthly self-breast exams. A clinical breast exam by your physician is recommended on an annual basis. This exam should not preclude additional follow-up of suspicious palpable abnormalities. Note on Whitney scores and lifetime risk: 1. A Whitney score greater than 3% is considered moderate risk. If this is the case, consider specialist referral to assess eligibility for a risk reducing agent. 2. If overall lifetime risk for the development of breast cancer is 20% or higher, the patient may qualify for future screening with alternating mammogram and breast MRI. Electronically signed and approved by: Scotty Walter DO
== END | disposition home or self-care (01) ==
LOC: RADMAMWWP 10:01
PROVIDERS: ATTEND Internal Medicine Geriatric Medicine
DX: R92.333 Mammographic heterogeneous density, bilateral breasts (principal); R92.2 Inconclusive mammogram; Z85.3 Personal history of malignant neoplasm of breast; Z80.3 Family history of malignant neoplasm of breast; Z78.0 Asymptomatic menopausal state
CPT/HCPCS: 77066; G0279; 77062

== ENCOUNTER → 2024-03-30 | Outpatient (CLI) | payer MEDICARE, OTHER ==
--- NOTE | 2024-04-02 12:19 | MM ---
Reason for Exam: Screening (asymptomatic). Last screening mammogram was performed 12 month(s) ago. Patient History: Menarche at age 15. First Full-Term at age 37. Late child-bearing (after 32). Left ovary removed at age 41. Right ovary removed at age 41. Hysterectomy at age 41. Postmenopausal. Patient has history of breast feeding. Breast cancer, right, age 65. Estrogen for 11 years from age 41 until age 52. Progesterone for 11 years from age 41 until age 52. 2016, Lumpectomy on the Right side. 2012, Benign Excisional Biopsy on the left side. 04/27/2021, Benign Core Biopsy on the left side. 06/14/2016, Malignant Core Biopsy on the right side. Maternal aunt had breast cancer, age 60. Maternal aunt had breast cancer, age 60. Mother had ovarian cancer at or over age 50. Prior Study Comparison: 09/23/2021 Left MG 3D diag mammo w/cad [facility]. 03/24/2022 Bilateral MG 3D diag mammo w/cad [facility]. 03/28/2023 Bilateral MG 3D diag mammo w/cad [facility]. Tissue Density: The breasts are heterogeneously dense, which may obscure small masses. Findings: Analyzed By CAD. Postsurgical and posttreatment changes right breast with surgical scarring demonstrated central posterior aspect. A couple microclips left breast from prior biopsies. Areas of asymmetric density are unchanged. A few scattered benign round calcifications are again noted. There is no suspicious group of microcalcifications or new suspicious mass in either breast. Overall Assessment: Benign, BI-RAD 2 Management: Screening Mammogram of both breasts in 1 year. The patient reports a 30 pound unintentional weight loss. Further clinical correlation is advised. Patient should continue monthly self-breast exams. A clinical breast exam by your physician is recommended on an annual basis. This exam should not preclude additional follow-up of suspicious palpable abnormalities. [facility], , 04/02/2024 12:16 PM. Electronically signed and approved by: Carolina Rome M.D. Radiologist
== END | disposition home or self-care (01) ==
LOC: RADMAMWWP 10:01
PROVIDERS: ATTEND Internal Medicine Geriatric Medicine
DX: Z12.31 Encounter for screening mammogram for malignant neoplasm of breast (principal); Z90.722 Acquired absence of ovaries, bilateral; Z78.0 Asymptomatic menopausal state; Z85.3 Personal history of malignant neoplasm of breast; Z80.3 Family history of malignant neoplasm of breast; R92.333 Mammographic heterogeneous density, bilateral breasts
CPT/HCPCS: 77063; 77067